=== PATIENT | female | born 1975 | race Caucasian/White ===

== ENCOUNTER 2019-10-26 01:10 | Inpatient (IN) | payer MEDICAID ==
[2019-10-26] VITALS (15 sets, daily range): BP systolic 121–147; BP diastolic 83–95; Ht 170.2 cm; Wt 112.6 kg
[~2019-10-26] VITALS: Ht 170.2 cm; Wt 112.6 kg
--- NOTE | ~2019-10-26 | HEMODYNAMI ---
PATIENT:DERICK QUILES MEDICAL RECORD: [id number] : 77 LOCATION:[facility] D.2310 ADMISSION DATE: 10/26/19 Generatedon:10/26/201914:47 Patient name: DERICK QUILES Patient #: [id number] SSN: : 1975 Date of study: 10/26/2019 Page: Of Hemodynamic Procedure Report Patient Data Patient Demographics Procedure consent was obtained First Name: DERICK Gender: Female Last Name: ETTA : 1975 Patient #: [id number] Age: 44 year(s) Race: Unknown Additional ID: [id number] Contact details Address: [place] [address] State: [place]: [place] Zip code: [address] Admission Admission Data Admission Date: 10/26/2019 Admission Time: 1:38 Room #: D.2310 Height (in.): 67 BSA: 2.23 (m2) Height (cm.): 170.18 BMI: 39.43 (kg/m2) Weight (lbs.): 251.77 Weight (kg.): 114.2 Lab Results Lab Result Date: 10/26/2019 Lab Result Time: 0:00 Biochemistry Name Units Result Min Max BUN mg/dl 22 --(----)-* 7 18 CK-MB ng/ml 26.4 --(----)-* 0 3.6 Creatinine mg/dl 1.4 --(----)*- 0.6 1.3 eGFR ml/min 43 *-(----)-- 90 120 NONAFRICAN Troponin l ng/ml 2.152 --(----)-* 0 0.06 CBC Name Units Result Min Max Hemoglobin g/dl 12.7 -*(----)-- 13.5 17.5 Coagulation Name Units Result Min Max PT sec 1.09 *-(----)-- 11.6 15 Procedure Procedure Types Cath Procedure Diagnostic Procedure [facility] w/Coronaries Sedation Charges Moderate Sedation up to 15 minutes PCI Procedure PTCA PTCA Initial Hemochron ACT Test Procedure Description Procedure Date Procedure Date: 10/26/2019 Procedure Start Time: 14:15 Procedure End Time: 14:39 Procedure Staff Name Function Neil Edwards MD Performing Physician Ramesh Mendoza RT Monitor Jacky Grissom RT Scrub Velma Banuelos RN Nurse Procedure Data Cath Procedure Fluoroscopy Diagnostic fluoroscopy Total fluoroscopy Time: 3.6 time: 3.6 min min Diagnostic fluoroscopy Total fluoroscopy dose: dose: 450.64 mGy 450.64 mGy Contrast Material Contrast Material Type Amount (ml) Isovue 300 119 Entry Location Entry Primary Successful Side Size Upsize Upsize Entry Closure Succes sful Closure Location (Fr) 1 (Fr) 2 (Fr) Remarks Device Remarks Femoral Right 5 Fr 6 Fr Exoseal artery Short Estimated blood loss: 10 ml Diagnostic catheters Device Type Used For End Catheter Placement MULTIPACK JL 4.0 5Fr Procedure catheter MULTIPACK 3DRC 5Fr Procedure catheter MULTIPACK Pigtail 5 Fr Procedure catheter Procedure Complications No complications Procedure Medications Medication Administration Route Dosage 0.9% NaCl I.V. 100 ml/hr Oxygen etCO2 Nasal cannula 2 l/min Lidocaine 2% added to field 20 Heparin Flush Bag added to field 2 bags (1000units/500ml NS) Versed I.V. 2 mg Fentanyl I.V. 50 mcg Heparin Bolus I.V. 5000 units Integrilin (Bolus I.V. 10.2 ml 2mg/ml) Plavix P.O. 600 mg Integrilin (Bolus I.C. 10.2 ml 2mg/ml) Hemodynamics Rest BSA: 2.23 (m2) HGB: 12.7 (g/dl) O2 Consumption: Estimated: 246.97 (ml/min) O2 Co nsumption indexed: Estimated:110.75 (ml/min/m) Heart Rate: 97 (bpm) Pressure Samples Time Site Value (mmHg) Purpose Heart Use Rate(bpm) 14:19 LV 111/18,18 Snapshot 90 14:20 AO 107/69(92) Pullback 110 14:20 LV 109/9,-18 Pullback 110 Gradients Valve Time Site 1 Site 2 Mean SEP/DFP Peak To Heart Use (mmHg) (sec/min) Peak Rate (mmHg) (bpm) Aortic 14:20 LV AO 2 12 2 110 109/9,-18 107/69(92) Calculations Valve P-P Mean Valve Index Valve Source Name Gradient Area Flow (cm2) Aortic 2 2 2 2 Snapshots Pre Cath Intra NCS Post Cath Vital Signs Time Heart Resp SPO2 etCO2 NIBP (mmHg) Rhythm Pain Sedation Rate (ipm) (%) (mmHg) Status Level (bpm) 14:04:36 94 18 97 36 128/94(110) NSR 0 (11) 10(A) , No pain 14:08:45 95 18 98 34 121/77(102) NSR 0 (11) 10(A) , No pain 14:12:51 91 11 96 33 115/78(90) NSR 0 (11) 9(A) , No pain 14:16:57 89 11 96 34.5 112/80(95) NSR 0 (11) 9(A) , No pain 14:21:01 90 11 96 34.5 111/79(91) NSR 0 (11) 9(A) , No pain 14:25:07 91 12 96 33.8 113/73(86) NSR 0 (11) 9(A) , No pain 14:29:16 93 12 95 29.2 93/63(81) NSR 0 (11) 10(A) , No pain 14:33:59 92 13 96 32.2 117/82(99) NSR 0 (11) 10(A) , No pain 14:37:59 95 20 97 21.7 113/99(104) NSR 0 (11) 10(A) , No pain Medications Time Medication Route Dose Verified Delivered Reason Notes Effectiveness by by 14:09:16 Versed I.V. 2 mg Neil Velma for sedation [facility] Blas Banuelos MD RN 14:09:17 0.9% NaCl I.V. 100 Neil Cruza used for ml/hr [facility] Bl[facility] Banuelos procedure RN 14:09:24 Oxygen etCO2 2 Neil Cruza used for Nasal l/min [facility] Bl[facility] Banuelos procedure cannula MD MEDEIROS 14:09:29 Fentanyl I.V. 50 Neil Cruza for sedation mcg [facility] Blas Banuelos MD RN 14:09:30 Lidocaine 2% added 20ml Neil Trejo for local to vial [facility] John anesthetic field MD GARCIA 14:09:34 Heparin Flush added 2 Neil Trejo used for Bag to bags [facility] procedure (1000units/500ml field MD GARCIA NS) 14:20:56 Heparin Bolus I.V. 5000 Neil Carreon for verif ied units [facility] anticoagulation with Dr. MD MEDEIROS Beggs 14:21:12 Integrilin I.V. 10.2 Neil Carreon for 10.2m L (Bolus 2mg/ml) ml [facility] antiplatelet from one RN therapy vial used, no additional integrilin vial needed. 14:21:50 Plavix P.O. 600 Neil Carreon for mg [facility] antiplatelet RN therapy 14:27:14 Integrilin I.C. 10.2 Neil Trejo for (Bolus 2mg/ml) ml [facility] antiplatelet MD GARCIA therapy Procedure Log Time Note 18:40:47 Multiple inflations made at 14 atms.. 18:40:47 Multiple inflations made at 14 atms.. 18:40:47 If diabetic: On Metformin? No 13:34:22 Jacky Jaciel RT(R) sent for patient. Start room use. 13:34:23 Time tracking: Regular hours (M-F 7:00 - 5:00) 13:34:28 Plan of Care:Hemodynamics will remain stable., Cardiac rhythm will remain stable., Comfort level will be maintained., Respiratory function will remain adequate., Patient/ family verbilizes understanding of procedure., Procedure tolerated without complication., Recovers from procedure without complications.. 13:53:50 Patient received from ICU to [facility] 3 Alert and oriented. Tansferred to table in Supine position. 13:53:52 Signed procedure consent form obtained from patient. 13:53:52 Warm blankets applied, and adonay hugger turned on for patient comfort. 13:53:53 Correct patient and procedure confirmed by team. 13:53:53 ECG and BP/O2 sat monitors applied to patient. 14:03:41 Vital chart was started 14:03:42 Baseline sample Acquired. 14:03:47 Rhythm: sinus rhythm 14:03:49 Full Disclosure recording started 14:03:59 H&P Date Dictated: 10/26/2019 Within 30 days and on chart.. 14:04:00 Pre-procedure instructions explained to patient. 14:04:00 Pre-op teaching completed and patient verbalized understanding. 14:04:03 Family unavailable. 14:04:05 Patient NPO since Midnight. 14:04:07 Is the patient allergic to Iodine/contrast media? No. 14:04:11 Is patient on blood thinner?No 14:04:13 ACC The patient was administered the following blood thiners within the last 24 hours: None 14:04:16 Patient diabetic? Yes. 14:04:25 Previous problem with sedation/anesthesia? No ? 14:04:31 Snore? Yes 14:04:34 Sleep apnea? Yes 14:04:36 Deviated septum? No 14:04:37 Opens mouth fully? Yes 14:04:38 Sticks out tongue? Yes 14:04:42 Airway obstruction? Yes COPD 14:04:46 Dentures? No ? 14:04:50 Pre procedure: right dorsailis pedis pulse 1+ Palpable, but thready & weak; easily obliterated 14:05:53 UNABLE TO GO RADIAL DUE TO WEAK RADIAL PULSE.. 14:06:05 Patient pain scale 0/10 ?. 14:06:14 IV patent on arrival in left forearm with 0.9% NaCl at [facility]. 14:06:16 Lab results completed and on chart. 14:06:22 Right groin area was prepped with chlora-prep and draped in sterile fashion 14:06:23 Alarms reviewed by R. N. 14:06:24 Sharps counted by scrub and verified by R.N. 14:08:39 Risk of Mortality: 0.1 14:08:42 Risk of blood transfusion: 0.9 14:08:46 Risk of REGGIE: 4.6 14:08:50 Stress Test: no; N/A ? 14:08:59 Physician arrived 14:08:59 --------ALL STOP TIME OUT------ 14:09:00 Final Timeout: patient, procedure, and site verified with staff and physician. All members of the team are in agreement. 14:09:16 Versed 2 mg I.V. was administered by Velma Banuelos RN; for sedation; Verbal order read back and verified. 14:09:17 0.9% NaCl 100 ml/hr I.V. was administered by Velma Banuelos RN; used for procedure; Verbal order read back and verified. 14:09:24 Oxygen 2 l/min etCO2 Nasal cannula was administered by Velma Banuelos RN; used for procedure; Verbal order read back and verified. 14:09: Right groin site verified by team. 14:09:29 Fentanyl 50 mcg I.V. was administered by Velma Banuelos RN; for sedation; Verbal order read back and verified. 14:09:30 Lidocaine 2% 20ml vial added to field was administered by Neil Edwards MD; for local anesthetic; Verbal order read back and verified. 14::31 Fire Safety Assessment: A--An alcohol-based skin anteseptic being used preoperatively., C--Open oxygen or nitrous oxide is being used., D--An ESU, laser, or fiber-optic light is being used. 14:09:34 Heparin Flush Bag (1000units/500ml NS) 2 bags added to field was administered by Neil Edwards MD; used for procedure; Verbal order read back and verified. 14:09:35 Physical assessment completed. ASA score P 2 - A patient with mild systemic disease as per Neil Edwards MD. 14:09:40 3b) 30-44 Moderately reduced kidney function. 14:09:42 Maximum allowable contrast dose (3.7 X eGFR X 0.75)120 ml. 14:09:46 Sedation plan: IV Moderate Sedation Medication:Versed, Fentanyl 14:10:30 Patient Height : 67 inches 14:10:34 Patient Weight : 251.77 lbs 14:12:15 Lab Result : Creatinine 1.4 mg/dl 14:12:15 Lab Result : BUN 22 mg/dl 14:12:15 Lab Result : Hemoglobin 12.7 g/dl 14:12:15 Lab Result : eGFR NONAFRICAN 43 ml/min 14:12:15 Lab Result : CK-MB 26.4 ng/ml 14:12:15 Lab Result : Troponin l 2.152 ng/ml 14:12:15 Lab Result : PT 1.09 sec 14:15:25 Use device set Femoral Dx 14:15:27 ACIST Manifold (75867) opened to sterile field. 14:15:27 ACIST Hand Control (13125) opened to sterile field. 14:15:28 Tegaderm 4 x 4 (1626W) opened to sterile field. 14:15:29 ACIST Syringe (83939) opened to sterile field. 14:15:30 Bag Decanter (2001S) opened to sterile field. 14:15:30 Medline Cath Pack ([id number]) opened to sterile field. 14:15:32 DIAGNOSTIC Multipack 5Fr catheter set (IQ2261) opened to sterile field. 14:15:34 SHEATH 5FR Ocean Gate (NUA555) opened to sterile field. 14:15:34 EMERALD Guide Wire (429-655) opened to sterile field. 14:15:40 Procedure started. 14:15:45 Local anesthetic to right femoral artery with Lidocaine 2% by Neil Edwards MD.INITIAL ACCESS ONLY 14:16:02 A 5 Fr sheath was inserted into the Right Femoral artery 14:16:11 A MULTIPACK JL 4.0 5Fr catheter was advanced over the wire and used for Procedure. 14:17:12 LCA angiography performed. 14:19:21 Catheter removed. 14:19:27 A MULTIPACK 3DRC 5Fr catheter was advanced over the wire and used for Procedure. 14:19:29 RCA angiography performed. 14:19:31 ACCDominant side:Left 14:19:36 Catheter removed. 14:19:50 A MULTIPACK Pigtail 5 Fr catheter was advanced over the wire and used for Procedure. 14:19:57 LV angiography performed. 14:19:58 LV gram done using ALTMAN 14:20:03 EF : 20 % 14:20:06 LV hemodynamics recorded. 14:20:08 Injector settings: Ml/sec: 10, Volume: 20, 14:20:10 Catheter removed. 14:20:[address] [facility] PCI 14:20:56 Heparin Bolus 5000 units I.V. was administered by Velma Banuelos RN; for anticoagulation; verified with Dr. Silvestre Verbal order read back and verified. 14:21:03 GUIDE 6FR XBLAD 3.5 catheter ([id number]) opened to sterile field. 14:21:05 SHEATH 6FR [place] (IJH951) opened to sterile field. 14:21:11 WHISPER 300cm guide wire ([id number]) opened to sterile field. 14:21:12 Integrilin (Bolus 2mg/ml) 10.2 ml I.V. was administered by Velma Banuelos RN; for antiplatelet therapy; 10.2mL from one vial used, no additional integrilin vial needed. Verbal order read back and verified. 14:21:13 INFLATOR Merit Kishan (CO4574) opened to sterile field. 14:21:26 Sheath upsized to a 6 Fr Short. 14:21:50 Plavix 600 mg P.O. was administered by Velma Banuelos RN; for antiplatelet therapy; Verbal order read back and verified. 14:22:00 6 Fr XBLAD 3.5 guide catheter was inserted over the wire 14:22:41 Pre PCI Site: [place] pLAD has 100% stenosis. 14:22:43 ACC Pre-intervention ROSANGELA Flow is 0. 14:22:50 Whisper wire advanced. 14:23:35 Wire advanced across lesion. 14:26:02 Inflate balloon Inflation number: 1 A Mozec Rx 3.0 x 14 balloon was prepped and advanced across the Prox LAD 100, then inflated to 14 KUNAL for 0:30 (min:sec) . 14:26:27 Multiple inflations made at 14 atms.. 14:27:14 Integrilin (Bolus 2mg/ml) 10.2 ml I.C. was administered by Neil Edwards MD; for antiplatelet therapy; Verbal order read back and verified. 14:31:48 Inflation number: 2 The Mozec Rx 3.0 x 14 balloon was reinflated across the Prox LAD 100, to 12 KUNAL for 0:30 (min:sec) . 14:32:34 Multiple inflations made at 12 atms.. 14:33:23 EXOSEAL 6Fr (EX600) opened to sterile field. 14:33:34 Balloon removed over the wire. 14:33:36 Wire removed. 14:33:38 Guide catheter removed. 14:33:53 Post PCI Site: [place] pLAD has 100% stenosis. 14:33:55 ACC Pre-intervention ROSANGELA Flow is 0. 14:34:13 Sheath removed intact; hemostasis achieved with Exoseal to the Right Femoral artery. 14:34:18 Procedure ended.(Physican Out) 14:35:06 Fluoroscopy time 03.60 minutes. 14:35:11 Fluoroscopy dose: 450.64 mGy 14:35:11 Flurop Dose total: 450.64 14:35:17 Dose Area Product 3648.23 mGy/cm. 14:36:07 Contrast amount:Isovue 300 119ml. 14:36:59 Maximum allowable dose exceeded? No. 14:37:00 Sharps counted by scrub and verified by R.N. 14:37:02 Insertion/operative site no bleeding no hematoma. 14:37:04 Post-op/insertion site Right Femoral artery dressed using a 4 x 4 and Tegaderm. 14:37:05 Post Procedure Pulses reassessed and unchanged 14:37:07 Post-procedure physical assessment completed. ASA score P 2 - A patient with mild systemic disease as per Neil Edwards MD. 14:37:10 Post procedure rhythm: unchanged. 14:37:12 Estimated blood loss: 10 ml 14:37:13 Post procedure instruction explained to patient.Patient verbalizes understanding. 14:37:14 Patient needs reinforcement of post procedure teaching. 14:37:47 Procedure type changed to Cath procedure, Diagnostic procedure, LHC, LHC w/Coronaries, Sedation Charges, Moderate Sedation up to 15 minutes, PCI procedure, PTCA, PTCA Initial, Hemochron ACT Test 14:37:48 Procedure and supply charges have been captured, reviewed, submitted and are correct. 14:37:51 Procedure Complication : No complications 14:37:55 Vital chart was stopped 14:37:57 [facility] Findings: MVD- PCI performed (see procedure note) 14:37:58 Operative report dictated upon procedure completion. 14:37:58 See physician's report for complete and final results. 14:38:01 Report given to ICU. 14:38:04 Patient transfered to ICU with Stretcher. 14:39:55 Procedure ended. 14:39:55 Full Disclosure recording stopped 14:40:00 ACT drawn and resulted at >400 seconds. (normal therapeutic range 180-240 seconds). 14:45:46 End room use (Document Last) 14:46:00 End room use (Document Last) Intervention Summary Intervention Notes Time ActionType Lesion and Equipment Action# Pressure Duration Attributes Used 14:26:02 Inflate Prox LAD Mozec Rx 1 14 00:30 balloon 3.0 x 14 balloon 14:31:48 Reinflate Prox LAD Mozec Rx 2 12 00:30 balloon 3.0 x 14 balloon Device Usage Item Name Manufacture Quantity Catalog Hospital Part Current Minima l Lot# / Number Charge Number Stock Stock Serial# Code [facility] 1 66677 370668 059824 854641 5 Manifold Medical (13533) Systems Inc ACIST Hand Acist 1 57371 723686 155010 236369 5 Control Medical (86236) Systems Inc Tegaderm 4 3M 1 1626W 996385 296189 027267 5 x 4 (1626W) ACIST Acist 1 36908 833639 049050 131080 20 Syringe Medical (93971) Systems Inc Bag Microtek 1 2001S 431561 75867 617430 5 Decanter Medical Inc. (2001S) Medline Medline 1 [id number] 423038 70704 028331 5 Cath Pack ([id number]) DIAGNOSTIC Cardinal 1 DS8753 001811 99913 415359 30 Multipack Unbound 5Fr catheter set (HS8981) SHEATH 5FR Terumo 1 RRF658 025090 127939 884354 5 Ocean Gate (BML407) EMERALD Cardinal 1 502-455 081833 831093 889485 5 Guide Wire Health (502455) MULTIPACK Cardinal 1 173297 5 JL 4.0 5Fr Health catheter MULTIPACK Cardinal 1 073267 5 3DRC 5Fr Health catheter MULTIPACK Cardinal 1 130869 5 Pigtail 5 Health Fr catheter GUIDE 6FR Cardinal 1 [id number] 663741 881038 849399 10 XBLAD 3.5 Health catheter (70902677) SHEATH 6FR Terumo 1 DUW913 618593 320358 279572 40 Ocean Gate (XQP030) WHISPER Dhaliwal 1 [id number] 962776 227988 050586 5 300cm guide Vascular wire (4839176UM) INFLATOR Merit 1 JS2392 455266 052072 615686 15 [facility] [place] [facility] BasixCompak (JU8935) Mozec Rx Cardinal 1 [id number] 815566 [id number] 129916 5 UMOD90 3.0 x 14 Health balloon EXOSEAL 6Fr Cardinal 1 EX600 778140 596031 481849 10 (EX600) Health Signature Audit [place] Stage Time Signature Unsigned Intra-Procedure 10/26/2019 Ramesh Mendoza 2:46:00 PM RT(R) Intra-Procedure 10/26/2019 Velma Banuelos 2:47:19 PM RN Intra-Procedure 10/26/2019 Neil Teixeira 2:47:38 PM Blas GARCIA [address] [place] [address]
[2019-10-26] MEDS ORDERED: NORVASC10 MG (01:20)
[2019-10-26] MEDS ORDERED: GLIPIZIDE10 MG PO (01:20)
[2019-10-26] MEDS ORDERED: ALBUTEROL SULF8.5 GM PO (01:20)
[2019-10-26] MEDS ORDERED: COUMADIN4 MG PO (01:21)
[2019-10-26] MEDS ORDERED: TOPROL XL200 MG (01:21)
[2019-10-26] MEDS ORDERED: KEPPRA1000 MG PO (01:21)
[2019-10-26] MEDS ORDERED: PLAVIX75 MG (01:21)
[2019-10-26] MEDS ORDERED: HYZAAR 50-12.51 TAB (01:21)
[2019-10-26 02:46] LABS: CKMB 3.1 U/L (0.0-3.6); CREATINE KINASE 56 UL (21-215)
[2019-10-26 02:47] LABS: TROPONIN-I 0.294 ng/mL (0.000-0.060)
--- NOTE | 2019-10-26 03:20 | NUR ---
PT ARRIVED ON UNIT VIA STRETCHER, HOOKED TO MONITORS, ALERT AND ORIENTED, ALL PPP, VSS, CALL LIGHT IN REACH
[2019-10-26 05:03] LABS: BASOPHILS 0.1 % (0-2); EOSINOPHILS 0.2 % (0-7); HEMATOCRIT 41.9 % (36.0-48.0); HEMOGLOBIN 12.7 g/dL (12-16); IMMATURE GRANULOCYTES 0.7 % (0-5); LYMPHOCYTES 5.3 % (15-50); MCH 25.1 pg (26.0-34.0); MCHC 30.3 g/dL (31.0-37.0); MEAN PLATELET VOLUME 9.9 fL (7.4-10.4); MONOCYTES 3.3 % (2-11); NEUTROPHILS 90.4 % (40-80); PLATELET COUNT 276 10x3/uL (130-400); RBC 5.05 10x6/uL (4.00-5.40); RDW 15.8 % (11.5-14.5); WBC 10.9 10x3/uL (4.8-10.8)
--- NOTE | 2019-10-26 05:10 | NUR ---
PT RESTING AT THIS TIME, NO NEEDS NOTED,
[2019-10-26 05:19] LABS: APTT 25.3 SECONDS (22.8-39.4); INR 1.09 (0.85-1.17); PROTIME 14.1 SECONDS (11.6-15.0)
[2019-10-26 05:31] LABS: ANION GAP 12.2 mmol/L (8-16); CALCIUM 8.4 mg/dL (8.5-10.1); CARBON DIOXIDE 29.6 mmol/L (21.0-32.0); CREATININE - SERUM 1.4 mg/dL (0.6-1.3); MAGNESIUM - SERUM 1.6 mg/dL (1.8-2.4); PHOSPHOROUS 5.3 mg/dL (2.5-4.9); POTASSIUM - SERUM 4.8 mmol/L (3.5-5.1)
--- NOTE | 2019-10-26 05:45 | NUR ---
CONSULT CALLED TO DR. AGEE, NO NEW ORDERS RECEIVED
--- NOTE | 2019-10-26 07:15 | NUR ---
REPORT RECEIVED. ASSESSMENT COMPLETE PER FLOW SHEET. VSS ASSISTED TO BEDSIDE COMMODE. 150 CC VOID NOTED. ASSISTED BACK TO BED. DENIES NEEDS WILL CONTINUE TO MONITOR
[2019-10-26 08:31] LABS: CKMB 26.4 U/L (0.0-3.6); CREATINE KINASE 183 UL (21-215)
[2019-10-26 08:34] LABS: TROPONIN-I 2.152 ng/mL (0.000-0.060)
--- NOTE | 2019-10-26 08:40 | NUR ---
DR SUBRAMANIAN AT BEDSIDE GIVEN UDPATE. NEW ORDERS RECEIEVD.
[2019-10-26 09:24] LABS: CHOL - HDL RATIO 4.6 ratio (2.3-4.1); LDL-HDL RATIO 2.9 ratio (1.5-3.5)
--- NOTE | 2019-10-26 10:29 | NUR ---
PT SLEEPING COMFORTABLY WILL CONTINUE TO MONITOR
--- NOTE | 2019-10-26 11:15 | NUR ---
REASSESSMENT COMPLTE PER FLOW SHEET. VSS. NO NEW CHANGES WILL CONTINUE TO MONITOR
--- NOTE | 2019-10-26 13:40 | NUR ---
CRANIOLOGIST CALLED PT PREOPED AT THIS TIME
--- NOTE | 2019-10-26 14:00 | NUR ---
CORRECTIONAL FACILITY PSYCHIATRIST AT BEDSIDE PT LEFT VIA BED
[2019-10-26 14:28] LABS: CKMB 50.8 U/L (0.0-3.6); CREATINE KINASE 358 UL (21-215)
[2019-10-26 14:29] LABS: TROPONIN-I 5.956 ng/mL (0.000-0.060)
--- NOTE | 2019-10-26 15:50 | NUR ---
PT RECEIVED FROM [employer]PER[employer] GUIDANCE VSS R GROIN INCISION SITE DRSG CDI GOLF BALL SIZE HEMATOMA PRESENT. R PEDAL PULSE PALP +2 FEM STOP PATENT AT 87. WILL CONTINUE TO MONITOR
--- NOTE | 2019-10-26 17:15 | NUR ---
FAMILY CALLED GIVEN UDPATE. PT SLEEPING COMFORTABLY WILL CONTINUE TO MONITOR
--- NOTE | 2019-10-26 19:15 | NUR ---
REPORT RECEIVED. PT RESTING IN BED, AAOX4. FEM STOP IN PLACE, HEMATOMA MARKED ON RT GROIN. RT AC PIV INFUSING, SEE IV FLOWSHEET. ASSESSMENT COMPLETED, SEE FLOWSHEET. NO ACUTE DISTRESS NOTED AT THIS TIME, WILL CONTINUE TO MONITOR.
[2019-10-26 20:10] LABS: CREATINE KINASE 1055 UL (21-215)
[2019-10-26 20:12] LABS: TROPONIN-I 41.397 ng/mL (0.000-0.060)
--- NOTE | 2019-10-26 21:00 | NUR ---
PT RESTING IN BED, NO ACUTE DISTRESS NOTED. WILL CONTINUE TO MONITOR.
--- NOTE | 2019-10-26 23:00 | NUR ---
PT RESTING IN BED, NO ACUTE DISTRESS NOTED. WILL CONTINUE TO MONITOR.
[2019-10-27] VITALS (25 sets, daily range): BP systolic 119–152; BP diastolic 76–102
--- NOTE | 2019-10-27 01:00 | NUR ---
PT RESTING IN BED, NO ACUTE DISTRESS NOTED.
--- NOTE | 2019-10-27 03:00 | NUR ---
PT RESTING IN BED COMFORTABLY. NO ACUTE DISTRESS NOTED. WILL CONTINUE TO MONITOR.
[2019-10-27 03:13] LABS: BASOPHILS 0.2 % (0-2); EOSINOPHILS 0.8 % (0-7); HEMATOCRIT 38.3 % (36.0-48.0); HEMOGLOBIN 11.5 g/dL (12-16); IMMATURE GRANULOCYTES 0.4 % (0-5); LYMPHOCYTES 8.4 % (15-50); MCH 24.8 pg (26.0-34.0); MCV 82.7 fL (80.0-100.0); MEAN PLATELET VOLUME 9.9 fL (7.4-10.4); MONOCYTES 7.7 % (2-11); NEUTROPHILS 82.5 % (40-80); PLATELET COUNT 268 10x3/uL (130-400); RBC 4.63 10x6/uL (4.00-5.40); RDW 16.2 % (11.5-14.5); WBC 11.1 10x3/uL (4.8-10.8)
[2019-10-27 03:42] LABS: ANION GAP 13.1 mmol/L (8-16); CALCIUM 8.1 mg/dL (8.5-10.1); CARBON DIOXIDE 26.3 mmol/L (21.0-32.0); CREATININE - SERUM 1.2 mg/dL (0.6-1.3); MAGNESIUM - SERUM 1.7 mg/dL (1.8-2.4); POTASSIUM - SERUM 4.4 mmol/L (3.5-5.1)
[2019-10-27 03:43] LABS: PHOSPHOROUS 3.9 mg/dL (2.5-4.9)
--- NOTE | 2019-10-27 05:10 | NUR ---
FEM STOP REMOVED, SITE SLIGHTLY FIRM TO PALPATION.
--- NOTE | 2019-10-27 07:00 | NUR ---
PT REPORT RRECEIVED FROM FRENCH BINDER NURSE. NO VISIBLE SIGNS OF DISTRESS NOTED. SHIFT ASSESSMENT COMPLETED. WILL CONTINUE TO MONITOR
--- NOTE | 2019-10-27 07:00 | NUR ---
PT REPORT RECEIVED FROM BUILDINGS PAINTER NURSE. NO VISIBLE SIGNS OF DISTRESS NOTED. SHIFT ASSESSMENT COMPLETED AT THIS TIME. PT ON LEVOPHED AT 2. WILL CONTINUE TO MONITOR
--- NOTE | 2019-10-27 08:49 | CN ---
PATIENT NAME:DERICK QUILES MEDICAL RECORD: [id number] : 77 LOCATION:[facility].2310 ADMIT DATE: 10/26/19 ACCOUNT: [id number] CONSULTING PHYSICIAN: SON SUBRAMANIAN MD REFERRING PHYSICIAN: SON PACE MD DATE OF CONSULTATION: 10/26/2019 HISTORY OF PRESENT ILLNESS: A 44-year-old female with a known coronary artery disease, status post stenting after myocardial infarction. She is status post CVA as well as diabetes mellitus, onset chest tightness, pressure, presented to [facility], found to have NSTEMI and is brought here for further evaluation. PAST MEDICAL HISTORY: Includes: 1. History of hypertension. 2. Diabetes mellitus. 3. Dyslipidemia. 4. Cerebrovascular disease status post CVA. ALLERGIES: TRICOR, NAPROSYN. MEDICATIONS: Include albuterol inhaler 2 puffs b.i.d., Plavix 75 every day, warfarin per scale, Norvasc 10 mg p.o. daily, Hyzaar 50/12.5 every day, metoprolol 200 every day, Glucotrol 10 p.o. b.i.d. SOCIAL HISTORY: Smokes less than a pack a day. No set of exercise program. No illicit drug use, though take care of ADLs. REVIEW OF SYSTEMS: The patient reports easy bruising but reports no swollen glands. The patient reports no fever, no night sweats, no significant weight gain, no significant weight loss. No significant exercise tolerance. The patient reports no dry eyes, no irritation, no vision change. Patient reports no difficulty hearing and no ear pain. Patient reports no frequent nose bleeds or nose and sinus problems. Patient reports on arm pain on exertion. No shortness of breath while lying down. No history of heart murmur. Patient reports no cough, no wheezing or coughing up blood. Patient reports no abdominal pain, no vomiting. Normal appetite. No diarrhea and not vomiting blood. No nausea and no constipation. Patient reports no incontinence. No difficulty urinating. No hematuria. No increased frequency. Patient reports no muscle aches. No weakness, no arthralgias, no back pain. No swelling of the extremities. Patient reports no abnormal mole, no jaundice, no rashes. Reports no loss of consciousness. No weakness and no numbness. No seizures, dizziness, or headaches. The patient reports no depression, no sleep disturbance, feeling safe in a relationship and no alcohol abuse. Patient reports on fatigue. Reports no runny nose or sinus pressure. No itching, no hives, and no frequent sneezing. PHYSICAL EXAMINATION: GENERAL: Pleasant female, in no acute distress, appears stated age. VITAL SIGNS: Blood pressure 147/88, pulse 103 and regular. HEENT: Normocephalic, atraumatic. NECK: No bruits are noted. HEART: Regular. Questionable S3 gallop. LUNGS: Good air excursion. ABDOMEN: Soft, nontender. CONSULT REPORT [id number] DERICK QUILES EXTREMITIES: Pulses 1+ with no edema. DIAGNOSTIC DATA: EKG shows possible old anterior myocardial infarction. IMPRESSION: NSTEMI, multiple risk factors. PLAN: For angiography, intervention based on above. TRANSINT:[id number] Voice Confirmation ID: [id number] DOCUMENT ID: [id number] SON SUBRAMANIAN MD at 0849 CC: [id number] DICTATION DATE: 10/26/19 0849 BAND MANAGER: 10/26/19 1254 ADM IN [address] [place] [address]
--- NOTE | 2019-10-27 08:49 | OP ---
PATIENT NAME: DERICK QUILES MEDICAL RECORD: [id number] :77 LOCATION:D.[facility] D.2310 ADMISSION DATE:10/26/19 SURGEON: SON SUBRAMANIAN MD DATE OF OPERATION: 10/26/2019 PROCEDURE: Left heart catheterization. PTCA stent of the LAD, right femoral artery approach. CATHETERS: A 5-Martiniquais sheath, 5/4 left and right Rios, 5/4 pig. The procedure was well tolerated. The patient was returned to kumar. Sheath removed. ExoSeal device was placed. FINDINGS: Left ventriculography in 30-degree ALTMAN view shows basically akinesis, anterior wall down to the anterior apex and true apex. LV function, estimated at 20% to 25%. CORONARY ANATOMY: LEFT MAIN: Left main is free of disease. LAD: Fills until the first stent is totally occluded. CIRCUMFLEX: Free of disease. RIGHT CORONARY ARTERY: Free of disease. IMPRESSION: Total occlusion of LAD. PLAN: Intervention momentarily. DESCRIPTION: A 5-Martiniquais sheath was exchanged for a 6-Martiniquais sheath. XB LAD guiding catheter out excellent guide catheter provided excellent guide catheter support, followed by 300 cm Whisper wire was placed easily down the stent down this portion of the apex of the LAD. We used a 3-0 balloon up and down the area of previous stenting in the levelock vessel up to 12 atmospheres, also was given IC Integrilin; however, we established no more than ROSANGELA 1 flow from ROSANGELA 0. IMPRESSION: Suspect significant clot burden at this point fortunately has been noncompliant and Plavix. I am not sure which of the anterior wall is viable at this point with Integrilin drip for 18 hours. QRS duration at this point is too narrow for a 3-lead. Depending on symptomology, etc. we will need to consider device therapy at some point. TRANSINT:[id number] Voice Confirmation ID: [id number] DOCUMENT ID: [id number] SON SUBRAMANIAN MD at 0849 CC: [id number] DICTATION DATE: 10/26/19 1446 LOG RAFT WORKER: 10/26/19 2253 ADM IN [facility] [address] [place] [address]
--- NOTE | 2019-10-27 09:00 | NUR ---
PT RESTING IN BED. DR JAUREGUI. ORDERS RECEIVED TO STOP TEGRELIN AND TO ORDER A MEAL TRAY FOR PT. WILL CONTINUE TO MONITOR
--- NOTE | 2019-10-27 09:00 | NUR ---
PT RESTING IN BED COMFORTABLY. NO ACUTE SIGNS OF DISTRESS NOTED. LEVOPHED TURNED OFF. PT TOLERATING WELL. WILL CONTINUE TO MONITOR
--- NOTE | 2019-10-27 09:19 | NUR ---
Nutrition follow-up: Pt sleeping at this time; did not disturb Diet advanced to consistent CHO Labs reviewed Pt s/p heart cath Wt: 251# RDN following.
--- NOTE | 2019-10-27 11:00 | NUR ---
PT RESTING IN BED COMFORTABLY. NO VISIBLE SIGNS OF DISTRESS NOTED. VSS. WILL CONTINUE TO MONITOR. REASSESSMENT COMPLETED.
--- NOTE | 2019-10-27 13:00 | NUR ---
PT UP TO BEDSIDE COMMODE. FAMILY IN ROOM. PT TOLERATED WELL. WILL CONTINUE TO MONITOR
--- NOTE | 2019-10-27 13:00 | NUR ---
PT RESTING IN BED COMFORTABLY. AROUSES EASILY. NO ACUTE SIGNS OF DISTRESS NOTED. WILL CONTINUE TO MONITOR
--- NOTE | 2019-10-27 15:00 | NUR ---
PT UP TO BEDSIDE COMMODE. NO VISIBLE SIGNS OF DISTRESS NOTED. REASSESSMENT COMPLETED. WILL CONTINUE TO MONITOR
--- NOTE | 2019-10-27 17:12 | NUR ---
PT RESTING ON THE EDGE OF THE BED. FINISHED MEAL TRAY. NO ACUTE SIGNS OF DISTRESS NOTED. WILL CONTINUE TO MONITOR
--- NOTE | 2019-10-27 19:00 | NUR ---
REPORT RECEIVED. INITIAL ASSESMENT COMPLETE. PT ALERT AND ORIENTED DENIES PAIN OR SOB AT THIS TIME. S1S2 CM READING SR90'S WITHOUT ECTOPY. RIGHT GROIN SITE CLEAN DRY BRUISING NOTED SOFT TISSUE AROUND SITE. PULSE PALPABLE VSS AT THIS TIME CALL LIGHT IN REACH WILL MONITOR
--- NOTE | 2019-10-27 23:00 | NUR ---
REASSESSMENT COMPLETE NO CHANGES PT GETS UP TO BSC WITHOUT ASSISTANCE CPOC
[2019-10-28] VITALS (26 sets, daily range): BP systolic 110–133; BP diastolic 77–97
--- NOTE | 2019-10-28 01:00 | NUR ---
PT UP TO BSC WITHOUT ASSISTANCE DENIES PAIN
--- NOTE | 2019-10-28 04:00 | NUR ---
ANSWERED PTS CALL LIGHT SHE IS REQUESTING SNACK LUKE CRACKERS AND DIET DRINK GIVEN
--- NOTE | 2019-10-28 04:10 | NUR ---
LAB HERE FOR AM BLOOD DRAW
[2019-10-28 04:23] LABS: BASOPHILS 0.2 % (0-2); EOSINOPHILS 2.4 % (0-7); HEMATOCRIT 35.2 % (36.0-48.0); HEMOGLOBIN 10.7 g/dL (12-16); IMMATURE GRANULOCYTES 0.5 % (0-5); LYMPHOCYTES 11.6 % (15-50); MCH 24.7 pg (26.0-34.0); MCHC 30.4 g/dL (31.0-37.0); MCV 81.3 fL (80.0-100.0); MEAN PLATELET VOLUME 9.9 fL (7.4-10.4); MONOCYTES 7.7 % (2-11); NEUTROPHILS 77.6 % (40-80); PLATELET COUNT 254 10x3/uL (130-400); RBC 4.33 10x6/uL (4.00-5.40); RDW 16.1 % (11.5-14.5); WBC 8.6 10x3/uL (4.8-10.8)
[2019-10-28 04:38] LABS: ANION GAP 9.8 mmol/L (8-16); CALCIUM 8.3 mg/dL (8.5-10.1); CARBON DIOXIDE 29.4 mmol/L (21.0-32.0); CREATININE - SERUM 1.2 mg/dL (0.6-1.3); MAGNESIUM - SERUM 1.6 mg/dL (1.8-2.4); PHOSPHOROUS 3.7 mg/dL (2.5-4.9); POTASSIUM - SERUM 4.2 mmol/L (3.5-5.1)
--- NOTE | 2019-10-28 07:00 | NUR ---
PT REPORT RECEIVED FROM ELECTION WATCHER NURSE. NO ACUTE SIGNS OF DISTRESS NOTED. SHIFT ASSESSMENT COMPLETED.
--- NOTE | 2019-10-28 09:00 | NUR ---
PT RESTING IN BED. AROUSES EASILY. NO ACUTE SIGNS OF DISTRESS NOTED. WILL CONTINUE TO MONITOR
--- NOTE | 2019-10-28 11:00 | NUR ---
PT UP AT BEDSIDE. NO ACUTE SIGNS OF DISTRESS NOTED. REASSESSMENT COMPLETED. WILL CONTINUE TO MONITOR
--- NOTE | 2019-10-28 13:00 | NUR ---
PT PLAYING ON PHONE IN BED. RESTING COMFORTABLY. WILL CONTINUE TO MONITOR
--- NOTE | 2019-10-28 15:17 | NUR ---
PT RESTING IN BED COMFORTABLY. AROUSES EASILY. REASSESSMENT COMPLETED. WILL CONTINUE TO MONITOR
--- NOTE | 2019-10-28 17:00 | NUR ---
PT RESTING IN BED EATING MEAL TRAY. NO ACUTE SIGNS OF DISTRESS NOTED. PT HAS NO COMPLAINTS AT THIS TIME. WILL CONTINUE TO MONITOR
--- NOTE | 2019-10-28 19:10 | NUR ---
VISITED WITH PT AND RECIVED SHIFT REPORT. PT IS A&OX4 IS RESTING IN BED WATCHIING TV. I PERFOMRED MY ASSESEMENT. I SALINE FLUSED PT IV IN THE RIGHT AC THAT WAS SL. THERE WAS SOME LEAKING AROUND THE HUB. I DC THE DRESSING, CLEANED UP THE AREA AND FLUSHED THE IV WITH NO S/S OF INFILTRATION. REDRESSED THE IV SITE AND DATED AND TIMED. PT TOLERATED WELL WITH SAYING "IT DOESNT HURT". PT ASKED AFTER THIS "CAN I HAVE MY SNACK, DINNER WAS NOT MUCH AND I AM HUNGRY". I VOCALIZED YES LET ME SEE WHAT YOU HAVE. I BROUGHT THE PT HER GRAM CRACKERS THAT WERE PROVIDED FROM DIETARY FOR HER AND SUGARFREE APPLESACUE AND A SPOON. I ASKED IF I COULD GET HER MORE WATER. SHE VOCALIZED "NO I AM GOOD". PT DOES NOT VOICE ANY DISCOMFORT AT THIS TIME. VITAL SIGHNS ARE STABLE. BED IS LOW,SIDE RAISLX2,CALL LIGHT WITHIN REACH. WILL CONITNUE TO MONITOR
--- NOTE | 2019-10-28 21:15 | NUR ---
PT IS RESTING IN BED WATCHING TV. VOICES NO C/O AT THIS TIME. BED IS LOW,SIDE RAILSX2,CALL LIGHT WITHIN REACH. WILL CONITNUE TO YAKELIN
--- NOTE | 2019-10-28 23:05 | NUR ---
PT IS RESTING IN BED WITH EYES CLOSED. I CHECKED ON IV AT THIS TIME. THERE IS NO S/S OF INFILTRATION. PT VOICES NO DISCOMFORT. PT IS LAYING ON HER LEFT SIDE. VITAL SIGNS ARE STABLE. BED IS LOW, SIDE RAILSX2,CALL LIGHT WITHIN REACH. WILL CONTINUE TO MONITOR
[2019-10-29] VITALS (7 sets, daily range): BP systolic 104–143; BP diastolic 69–101
--- NOTE | 2019-10-29 01:25 | NUR ---
PT IS UP USING THE BEDSIDE CAMMODE. VOICES NO DISCOMFORTS AT THIS TIME. SHE IS ABLE TO AMB HERSLEF THERE AND BACK TO THE BED SAFELY. PT VITALS ARE STABLE. BED IS LOW,SIDE RAISX2, CALL LIGHT WITHIN REACH. WILL CONTINUE TO MONITOR
[2019-10-29 03:51] LABS: BASOPHILS 0.1 % (0-2); EOSINOPHILS 2.3 % (0-7); HEMATOCRIT 34.7 % (36.0-48.0); HEMOGLOBIN 10.4 g/dL (12-16); IMMATURE GRANULOCYTES 0.7 % (0-5); LYMPHOCYTES 12.1 % (15-50); MCH 24.8 pg (26.0-34.0); MCV 82.6 fL (80.0-100.0); MONOCYTES 8.4 % (2-11); NEUTROPHILS 76.4 % (40-80); PLATELET COUNT 262 10x3/uL (130-400); RDW 16.1 % (11.5-14.5); WBC 7.5 10x3/uL (4.8-10.8)
[2019-10-29 04:03] LABS: ANION GAP 9.8 mmol/L (8-16); CARBON DIOXIDE 29.7 mmol/L (21.0-32.0); CREATININE - SERUM 1.2 mg/dL (0.6-1.3); MAGNESIUM - SERUM 1.8 mg/dL (1.8-2.4); PHOSPHOROUS 4.5 mg/dL (2.5-4.9); POTASSIUM - SERUM 4.5 mmol/L (3.5-5.1)
--- NOTE | 2019-10-29 04:14 | NUR ---
WHEN CHECKING ON PT SHE VOCALIZED "MAY I HAVE A SNACK". I VOICED I WOULD LOOK TO SEE IF SHE HAS ONE. I PROVIDED PT WITH SNACK FROM THE KITCHEN THAT WAS BROUGHT UP FOR HER PER DIET ORDER. ALSO PROVIDED HER WITH A FRESH ICE WATER. I EMPTED HER BEDSIDE COMMODE AT THIS TIME. PT HAD A SMALL DARK BROWN BM. ALSO CHECKED PULSE CHECKS AT THIS TIME AND PALPATED STRONG PULSE IN RIGHT FOOT. NO OTHER NEEDS AT THIS TIME. VITALS ARE STABLE. BED IS LOW, SIDE RAILSX2, CALL LIGHT WIHTIN REACH. WILL CONTINUE TO MONITOR
--- NOTE | 2019-10-29 06:48 | NUR ---
PT IS SITING UP IN BED. VOICED "I HAD A BOWEL MOVEMENT". I GOT RID OF THIS AT THIS TIME. CLEANED BEDSIDE COMMODE. NO DISCOMFORT VOICED. VITAL SIGNS ARE STABLE. BED IS LOW,SIDE RAILSX2, CALL LIGHT WITHIN REACH. WILL CONTINUE TO MONTIOR
--- NOTE | 2019-10-29 08:11 | NUR ---
UP IN BED EATING BREAKFAST AT THIS TIME. VSS. NO ACUTE DISTERSS NOTED. PT DENIES ANY CHEST PAIN. WILL CONTINUE PLAN OF CARE.
--- NOTE | 2019-10-29 10:42 | NUR ---
CHG BATH OFFERED AT THIS TIME, PT REFUSED.
--- NOTE | 2019-10-29 11:50 | NUR ---
REPORT CALLED TO RECIEVING NURSE FOR PT TO TRANSFER TO ROOM 2114. WILL TRANSFER PT SHORTLY.
--- NOTE | 2019-10-29 12:05 | NUR ---
PT TRANSFERRED TO ROOM 2115 AT THIS TIME VIA WHEELCHAIR WITH ALL PERSONAL ITEMS. VSS. NO ACUTE DISTRESS NOTED. NO FURTHER ACTIONS.
--- NOTE | 2019-10-29 15:36 | MORECARE ---
CASE MANAGEMENT DISCHARGE SUMMARY PATIENT: DERICK QUILES UNIT: [id number] ADM DATE: 10/26/19 AGE: 44 : [birth year] SEX: F ROOM/BED: D.6135 AUTHOR: MINDY,DOC PHYSICIAN: REFERRING PHYSICIAN: SON PACE MD DATE OF SERVICE: 10/29/19 Discharge Plan Patient Name: DERICK QUILES Facility: [facility]:[place] : 1975 Planned Disposition: Home Anticipated Discharge Date: Discharge Date: Expected LOS: Initial Reviewer: [email or web address] Initial Review Date: 10/27/2019 Generated: 10/29/19 4:36 pm Comments DCP- Discharge Planning Updated by [email or web address]: Carolyn Mccullough on 10/29/19 2:[address] LATE ENTRY 10/27/2019 Patient Name: DERICK QUILES Admission Status: ER Accout number: [id number] Admission Date: 10-26-2019 : 1975 Admission Diagnosis: Attending: MELISSA Current LOS: 1 Anticipated DC Date: Planned Disposition: Home Primary Insurance: MEDICAID [place] PENDING Discharge Planning Comments: CM met with patient to complete initial dc planning assessment. CM educated patient on the CM role and verbal consent given by patient to complete assessment. Patient states she is staying with her myotnm-[id number]-ehw where she is independent with her care. At discharge patient plans to return home and feels this is a safe discharge. CM discussed availability of home health, rehab services, and medical equipment. She will have family drive her home at discharge. Patient has a shower chair, bedside commode, and rollator. Patient denied known discharge needs at this time. Patient may need assistance with medications upon discharge d/t Medicaid pending. CM will continue to follow and will assist as needed with dc plans/needs. Barrel Tester: Carolyn Mccullough DCPIA - Discharge Planning Initial Assessment Updated by [email or web address]: Carolyn Mccullough on 10/29/19 3:30 pm * Is the patient Alert and Oriented? Yes * How many steps to enter\exit or inside your home? * PCP NO PCP * [facility] * Preadmission Environment Home with Family * ADLs Independent * Other Equipment BSC, SC, ROLLATOR * List name and contact numbers for known caregivers / representatives who currently or will assist patient after discharge: NHI QUILES - SPOUSE- [phone] * Verbal permission to speak to the caregivers and representatives has been obtained from the patient. Yes * Community resources currently utilized None * Additional services required to return to the preadmission environment? No * Can the patient safely return to the preadmission environment? Yes * Has this patient been hospitalized within the prior 30 days at any hospital? Yes Patient Name: DERICK QUILES Page [id number] at 1536 All edits/amendments must be made on the electronic document DICTATION DATE: 10/29/191535 COMPUTER SYSTEMS TECHNOLOGY INSTRUCTOR: DANG 10/29/191535 RPT#: [id number] DC DATE: STATUS: ADM IN [facility] [address] [place] [address] END OF REPORT
--- NOTE | 2019-10-29 15:44 | MORECARE ---
CASE MANAGEMENT DISCHARGE SUMMARY PATIENT: DERICK QUILES UNIT: [id number] ADM DATE: 10/26/19 AGE: 44 : [birth year] SEX: F ROOM/BED: D.7058 AUTHOR: MINDY,DOC PHYSICIAN: REFERRING PHYSICIAN: SON PACE MD DATE OF SERVICE: 10/29/19 Discharge Plan Patient Name: DERICK QUILES Facility: [facility]:[place] : 1975 Planned Disposition: Home Anticipated Discharge Date: Discharge Date: Expected LOS: Initial Reviewer: [email or web address] Initial Review Date: 10/27/2019 Generated: 10/29/19 4:43 pm Comments DCP- Discharge Planning Updated by [email or web address]: Carolyn Mccullough on 10/29/19 2:[address] LATE ENTRY 10/27/2019 Patient Name: DERICK QUILES Admission Status: ER Accout number: [id number] Admission Date: 10-26-2019 : 1975 Admission Diagnosis: Attending: MELISSA Current LOS: 1 Anticipated DC Date: Planned Disposition: Home Primary Insurance: MEDICAID [place] PENDING Discharge Planning Comments: CM met with patient to complete initial dc planning assessment. CM educated patient on the CM role and verbal consent given by patient to complete assessment. Patient states she is staying with her jvvumz-s-zxm where she is independent with her care. At discharge patient plans to return home and feels this is a safe discharge. CM discussed availability of home health, rehab services, and medical equipment. She will have family drive her home at discharge. Patient has a shower chair, bedside commode, and rollator. Patient denied known discharge needs at this time. Patient may need assistance with medications upon discharge d/t Medicaid pending. CM will continue to follow and will assist as needed with dc plans/needs. Well Driller: Carolyn Mccullough DCPIA - Discharge Planning Initial Assessment Updated by [email or web address]: Carolyn Mccullough on 10/29/19 3:30 pm * Is the patient Alert and Oriented? Yes * How many steps to enter\exit or inside your home? * PCP NO PCP * [facility] * Preadmission Environment Home with Family * ADLs Independent * Other Equipment BSC, SC, ROLLATOR * List name and contact numbers for known caregivers / representatives who currently or will assist patient after discharge: NHI QUILES - SPOUSE- [phone] * Verbal permission to speak to the caregivers and representatives has been obtained from the patient. Yes * Community resources currently utilized None * Additional services required to return to the preadmission environment? No * Can the patient safely return to the preadmission environment? Yes * Has this patient been hospitalized within the prior 30 days at any hospital? Yes Patient Name: DERICK QUILES Page [phone] at 1544 All edits/amendments must be made on the electronic document DICTATION DATE: 10/29/191542 DELI WORKER: DANG 10/29/191542 RPT#: [id number] DC DATE: STATUS: ADM IN [facility] [address] [place] [address] END OF REPORT
--- NOTE | 2019-10-29 19:58 | NUR ---
REPORT RECIEVED AND INITIAL ROUNDS COMPLETED. PT RESTING IN BED. SR/1OO PER TELEMETRY. SEE SHIFT ASSESSMENT. CPOC.
--- NOTE | 2019-10-29 22:44 | NUR ---
FSBS 219, SLIDING SCALE INSULIN GIVEN. ASSISTED PT TO REMOVED LEFT LOWER LEG ORTHOTIC. DECLINED BEDTIME SNACK. CALL LIGHT IN REACH. CPOC.
[2019-10-30 00:20] VITALS: BP 122/85
--- NOTE | 2019-10-30 05:18 | NUR ---
NO CHANGE FROM INITIAL SHIFT ASSESSMENT. CPOC. CALL LIGHT IN REACH.
[2019-10-30 05:30] LABS: BASOPHILS 0.1 % (0-2); HEMATOCRIT 34.2 % (36.0-48.0); HEMOGLOBIN 10.3 g/dL (12-16); IMMATURE GRANULOCYTES 0.6 % (0-5); LYMPHOCYTES 13.5 % (15-50); MCH 24.6 pg (26.0-34.0); MCHC 30.1 g/dL (31.0-37.0); MCV 81.8 fL (80.0-100.0); MEAN PLATELET VOLUME 9.9 fL (7.4-10.4); MONOCYTES 9.1 % (2-11); NEUTROPHILS 74.7 % (40-80); PLATELET COUNT 296 10x3/uL (130-400); RBC 4.18 10x6/uL (4.00-5.40); RDW 16.3 % (11.5-14.5); WBC 6.8 10x3/uL (4.8-10.8)
[2019-10-30 05:45] LABS: ANION GAP 10.7 mmol/L (8-16); CALCIUM 8.1 mg/dL (8.5-10.1); CARBON DIOXIDE 28.5 mmol/L (21.0-32.0); CREATININE - SERUM 1.1 mg/dL (0.6-1.3); MAGNESIUM - SERUM 1.6 mg/dL (1.8-2.4); POTASSIUM - SERUM 4.2 mmol/L (3.5-5.1)
[2019-10-30 08:14] VITALS: BP 140/82
[2019-10-30 11:32] VITALS: BP 130/88; BP 135/68
--- NOTE | 2019-10-30 12:18 | EC ---
PATIENT:DERICK QUILES DATE OF SERVICE: 10/26/19 SEX: F MEDICAL RECORD: [id number] DATE OF : [birth year] LOCATION:D.M2 D.211 AGE OF PATIENT: 44 ADMISSION DATE: 10/26/19 REFERRING PHYSICIAN: INTERPRETING PHYSICIAN: SON SUBRAMANIAN MD ECHOCARDIOGRAM REPORT ECHO CHARGES 4 ECHO COMPLETE Date: 10/28/19 CLINICAL DIAGNOSIS: CHF, MR ECHOCARDIOGRAPHIC MEASUREMENTS (adult normal given) AC root (d.<3.7cm) 2.9 cm LV Septum d (<1.2 cm> 1.4 cm Valve Excursion 1.8 cm LV Septum (systole) 1.5 cm Left Atria (s.<4.0cm> 5.2 cm LVPW d(<1.2cm) 1.1 cm RV (d.<2.3cm) 3.4 cm LVPW (sytole) 1.2 cm LV diastole(<5.6CM) 5.5 cm MV E-F(>70mm/sec) cm LV systole 4.3 cm LVOT Diameter 2.1 cm MV exc.(>10mm) cm Est.ejection fraction (50-75%) % DOPPLER: LVIT cm/sec A 42 cm/sec E 84 cm/sec LA cm/sec RVSP 69.2 mmHg LVOT 61 cm/sec AOP1/2T m/s Asc. Ao 105 cm/sec RVOT 71 cm/sec RA cm/sec PA 75 cm/sec AV Gradient Peak 4.4 mmHg AV Mean 2.6 mmHg AV Area 1.6 cm MV Gradient Peak 7.3 mmHg MV Mean 2.0 mmHg MV Area cm COMMENTS: Heater Tender: Bruno OHARA Hair Tinter: 3 Dr. Silvestre TAPE# PACS Pericardial Effusion N DATE OF SERVICE: Adequate 2-D echo, Color-Flow and Spectral Doppler, and M-mode LVH is present. LV internal dimension is normal. There is marked hypokinesis of the mid anterior wall and anterior apex. Overall, function reduced. Estimated EF 30% to 35%. Aortic valve sclerosis without stenosis by Doppler interrogation. Left atrium is dilated at 5.2 cm. Mitral valve shows no prolapse. Mild MR. Right-sided chambers are grossly normal. Mild TR. ECHOCARDIOGRAM REPORT [id number] DERICK QUILES TRANSINT:[id number] Voice Confirmation ID: [id number] DOCUMENT ID: [id number] SON SUBRAMANIAN MD at 1218 CC: [id number] DICTATION DATE: 10/29/19 1139 HOTEL CONTROLLER: 10/29/19 2256 ADM IN [facility] [id number] [place] [address]
[2019-10-30 15:22] VITALS: BP 133/83
--- NOTE | 2019-10-30 19:19 | NUR ---
RECEIVED BEDSIDE REPORT. PATIENT IS ALERT AND ORIENTED, RESTING COMFOETABLY IN BED. RESPIRATIONS ARE EVEN AND UNLABORED. NO S/S OF DISTRESS. NO C/O PAIN. NEEDS MET. CALL LIGHT WITHIN REACH. WILL CPOC.
[2019-10-30 19:49] LABS: APPEARANCE CLEAR (CLEAR); BILIRUBIN NEGATIVE (NEGATIVE); COLOR YELLOW (YELLOW); GLUCOSE NEGATIVE (NEGATIVE); KETONE NEGATIVE (NEGATIVE); NITRITE NEGATIVE (NEGATIVE); PROTEIN 1+ mg/dL (NEGATIVE); SPECIFIC GRAVITY 1.015 (1.005-1.020); UROBILINOGEN NORMAL (NORMAL)
[2019-10-30 20:00] VITALS: BP 133/89
[2019-10-31] VITALS: BP 126/80
[2019-10-31 04:00] VITALS: BP 125/85
[2019-10-31 07:06] LABS: BASOPHILS 0.1 % (0-2); EOSINOPHILS 2.6 % (0-7); HEMATOCRIT 35.4 % (36.0-48.0); HEMOGLOBIN 10.6 g/dL (12-16); IMMATURE GRANULOCYTES 0.6 % (0-5); LYMPHOCYTES 16.2 % (15-50); MCH 24.5 pg (26.0-34.0); MCHC 29.9 g/dL (31.0-37.0); MCV 81.9 fL (80.0-100.0); MEAN PLATELET VOLUME 10.2 fL (7.4-10.4); NEUTROPHILS 70.5 % (40-80); PLATELET COUNT 312 10x3/uL (130-400); RBC 4.32 10x6/uL (4.00-5.40); RDW 16.4 % (11.5-14.5); WBC 6.9 10x3/uL (4.8-10.8)
[2019-10-31 07:16] LABS: INR 0.98 (0.85-1.17)
[2019-10-31 07:25] LABS: ALBUMIN 2.6 g/dL (3.4-5.0); ANION GAP 10.7 mmol/L (8-16); BILIRUBIN - TOTAL 0.86 mg/dL (0.2-1.3); CALCIUM 8.5 mg/dL (8.5-10.1); CARBON DIOXIDE 29.2 mmol/L (21.0-32.0); CREATININE - SERUM 1.2 mg/dL (0.6-1.3); PROTEIN - SERUM 6.6 g/dL (6.4-8.2)
[2019-10-31 07:26] LABS: POTASSIUM - SERUM 4.9 mmol/L (3.5-5.1)
[2019-10-31 07:58] VITALS: BP 130/87
--- NOTE | 2019-10-31 09:57 | MORECARE ---
CASE MANAGEMENT DISCHARGE SUMMARY PATIENT: DERICK QUILES UNIT: [id number] ADM DATE: 10/26/19 AGE: 44 : 77 SEX: F ROOM/BED: D.5080 AUTHOR: MINDYDOC PHYSICIAN: REFERRING PHYSICIAN: SON PACE MD DATE OF SERVICE: 10/31/19 Discharge Plan Patient Name: DERICK QUILES Facility: [facility]:[place] : 1975 Planned Disposition: Home Anticipated Discharge Date: 10/31/19 Discharge Date: Expected LOS: 5 Initial Reviewer: [email or web address] Initial Review Date: 10/27/2019 Generated: 10/31/19 10:57 am Comments DCP- Discharge Planning Updated by [email or web address]: Carolyn Mccullough on 10/29/19 2:[address] LATE ENTRY 10/27/2019 Patient Name: DERICK QUILES Admission Status: ER Accout number: [id number] Admission Date: 10-26-2019 : 1975 Admission Diagnosis: Attending: MELISSA Current LOS: 1 Anticipated DC Date: Planned Disposition: Home Primary Insurance: MEDICAID [place] PENDING Discharge Planning Comments: CM met with patient to complete initial dc planning assessment. CM educated patient on the CM role and verbal consent given by patient to complete assessment. Patient states she is staying with her [id number]-b-fsl where she is independent with her care. At discharge patient plans to return home and feels this is a safe discharge. CM discussed availability of home health, rehab services, and medical equipment. She will have family drive her home at discharge. Patient has a shower chair, bedside commode, and rollator. Patient denied known discharge needs at this time. Patient may need assistance with medications upon discharge d/t Medicaid pending. CM will continue to follow and will assist as needed with dc plans/needs. Embroidery Cutter: Carolyn Mccullough DCPIA - Discharge Planning Initial Assessment Updated by [email or web address]: Carolyn Mccullough on 10/29/19 3:30 pm * Is the patient Alert and Oriented? Yes * How many steps to enter\exit or inside your home? * PCP NO PCP * [facility] * Preadmission Environment Home with Family * ADLs Independent * Other Equipment BSC, SC, ROLLATOR * List name and contact numbers for known caregivers / representatives who currently or will assist patient after discharge: NHI QUILES - SPOUSE- [phone] * Verbal permission to speak to the caregivers and representatives has been obtained from the patient. Yes * Community resources currently utilized None * Additional services required to return to the preadmission environment? No * Can the patient safely return to the preadmission environment? Yes * Has this patient been hospitalized within the prior 30 days at any hospital? Yes External Providers External Provider: OTHER-OTHER Next Contact Date: 10/31/2019 Service Request Date: Service Type: Resolution: Reviewer: Comments: Last DP export: 10/29/19 2:44 p Patient Name: DERICK QUILES Page 99986 at 0957 All edits/amendments must be made on the electronic document DICTATION DATE: 10/31/19956 LABOR CUSTODIAN: DANG 10/31/19956 RPT#: [id number] DC DATE: STATUS: ADM IN [facility] [address] [place] [address] END OF REPORT
--- NOTE | 2019-10-31 10:04 | MORECARE ---
CASE MANAGEMENT DISCHARGE SUMMARY PATIENT: DERICK QUILES UNIT: [id number] ADM DATE: 10/26/19 AGE: 44 : 77 SEX: F ROOM/BED: D.4946 AUTHOR: MINDYDOC PHYSICIAN: REFERRING PHYSICIAN: SON PACE MD DATE OF SERVICE: 10/31/19 Discharge Plan Patient Name: DERICK QUILES Facility: [facility]:[place] : 1975 Planned Disposition: Home Anticipated Discharge Date: 10/31/19 Discharge Date: Expected LOS: 5 Initial Reviewer: [email or web address] Initial Review Date: 10/27/2019 Generated: 10/31/19 11:04 am Comments DCP- Discharge Planning Updated by [email or web address]: Carolyn Mccullough on 10/29/19 2:[address] LATE ENTRY 10/27/2019 Patient Name: DERICK QUILES Admission Status: ER Accout number: [id number] Admission Date: 10-26-2019 : 1975 Admission Diagnosis: Attending: MELISSA Current LOS: 1 Anticipated DC Date: Planned Disposition: Home Primary Insurance: MEDICAID [place] PENDING Discharge Planning Comments: CM met with patient to complete initial dc planning assessment. CM educated patient on the CM role and verbal consent given by patient to complete assessment. Patient states she is staying with her nygqdb-f-dod where she is independent with her care. At discharge patient plans to return home and feels this is a safe discharge. CM discussed availability of home health, rehab services, and medical equipment. She will have family drive her home at discharge. Patient has a shower chair, bedside commode, and rollator. Patient denied known discharge needs at this time. Patient may need assistance with medications upon discharge d/t Medicaid pending. CM will continue to follow and will assist as needed with dc plans/needs. Clinical Engineer: Carolyn Mccullough DCPIA - Discharge Planning Initial Assessment Updated by [email or web address]: Carolyn Mccullough on 10/29/19 3:30 pm * Is the patient Alert and Oriented? Yes * How many steps to enter\exit or inside your home? * PCP NO PCP * [facility] * Preadmission Environment Home with Family * ADLs Independent * Other Equipment BSC, SC, ROLLATOR * List name and contact numbers for known caregivers / representatives who currently or will assist patient after discharge: NHI QUILES - SPOUSE- [phone] * Verbal permission to speak to the caregivers and representatives has been obtained from the patient. Yes * Community resources currently utilized None * Additional services required to return to the preadmission environment? No * Can the patient safely return to the preadmission environment? Yes * Has this patient been hospitalized within the prior 30 days at any hospital? Yes Last DP export: 10/31/19 8:57 a Patient Name: DERICK QUILES Page 01189 at 1004 All edits/amendments must be made on the electronic document DICTATION DATE: 10/31/191003 STITCHER HAND: DANG 10/31/191003 RPT#: [id number] DC DATE: STATUS: ADM IN [facility] [address] [place] [address] END OF REPORT
--- NOTE | 2019-10-31 10:11 | MORECARE ---
CASE MANAGEMENT DISCHARGE SUMMARY PATIENT: DERICK QUILES UNIT: [id number] ADM DATE: 10/26/19 AGE: 44 : [birth year] SEX: F ROOM/BED: D.4851 AUTHOR: MINDY,DOC PHYSICIAN: REFERRING PHYSICIAN: SON PACE MD DATE OF SERVICE: 10/31/19 Discharge Plan Patient Name: DERICK QUILES Facility: [facility]:[place] : 1975 Planned Disposition: Home Anticipated Discharge Date: 10/31/19 Discharge Date: Expected LOS: 5 Initial Reviewer: [email or web address] Initial Review Date: 10/27/2019 Generated: 10/31/19 11:11 am Comments DCP- Discharge Planning Updated by [email or web address]: Steven Tatum on 10/31/19 9:[address] Patient Name: DERICK QUILES Encounter No: [id number] : 1975 Primary Insurance: MEDICAID [place] Anticipated DC Date: 10-31-2019 Planned Disposition: Home DCP follow-up note: CM RECEIVED PHONE REQUEST FROM UNKNOWN PERSON TO FAX EXCUSE TO [facility] COURT PT HAD COURT THIS MORNING. CM MET WITH PT IN ROOM. PT STATES IT MUST HAVE BEEN HER BROTHER TO CALL. PT ASKED CM TO FAX AN EXCUSE TO COURT SO THAT SHE WILL NOT HAVE A BENCH WARRANT OUT FOR HER ARREST. PT STATES SHE WAS SUPPOSED TO BE IN COURT AT 0900 THIS MORNING. CM DISCUSSED DISCHARGE PLANNING AND NEEDS. PT STATES SHE HAS BEEN A DIABETIC FOR ABOUT THREE YEARS, HAS BEEN ON GLIPAZIDE AND NOVALOG PRIOR TO ARRIVAL. PT REPORTS ABILITY TO AFFORD GLIPAZIDE BUT THAT NOVALOG IS EXPENSIVE. PT DOES NOT KNOW HOW MUCH IT COSTS REPORTING SHE NEVER BOUGHT ANY AND USUALLY GETS IT FROM FRIENDS. PT REPORTS ONE VIAL USUALLY LAST HER A VERY LONG TIME. PT DENIES HAVING RESOURCES TO ASSIST IN GETTING HER NOVALOG AFTER DISCHARGE HOME. PT DENIES FURTHER NEEDS, REPORTS FAMILY TO TRANSPORT HER HOME. PT PLANS TO DISCHARGE HOME TODAY. CM FAXED LETTER TO [facility] COURT, ATTENTION KING CUMMINGS AT [phone]. COPY TO CHART AND TO PT. CM TO REQUEST MEDICATION ASSISTANCE FOR INSULIN AT DISCHARGE. Steven Tatum, CASE MANAGEMENT DCP- Discharge Planning Updated by [id number]: Carolyn Mccullough on 10/29/19 2:[address] LATE ENTRY 10/27/2019 Patient Name: DERICK QUILES Admission Status: ER Accout number: [id number] Admission Date: 10-26-2019 : 1975 Admission Diagnosis: Attending: MELISSA Current LOS: 1 Anticipated DC Date: Planned Disposition: Home Primary Insurance: MEDICAID [place] PENDING Discharge Planning Comments: CM met with patient to complete initial dc planning assessment. CM educated patient on the CM role and verbal consent given by patient to complete assessment. Patient states she is staying with her [id number] where she is independent with her care. At discharge patient plans to return home and feels this is a safe discharge. CM discussed availability of home health, rehab services, and medical equipment. She will have family drive her home at discharge. Patient has a shower chair, bedside commode, and rollator. Patient denied known discharge needs at this time. Patient may need assistance with medications upon discharge d/t Medicaid pending. CM will continue to follow and will assist as needed with dc plans/needs. Telecommunications Line Mechanic: Carolyn Mccullough DCPIA - Discharge Planning Initial Assessment Updated by [email or web address]: Carolyn Mccullough on 10/29/19 3:30 pm * Is the patient Alert and Oriented? Yes * How many steps to enter\exit or inside your home? * PCP NO PCP * [facility] * Preadmission Environment Home with Family * ADLs Independent * Other Equipment BSC, SC, ROLLATOR * List name and contact numbers for known caregivers / representatives who currently or will assist patient after discharge: NHI QUILES - SPOUSE- [phone] * Verbal permission to speak to the caregivers and representatives has been obtained from the patient. Yes * Community resources currently utilized None * Additional services required to return to the preadmission environment? No * Can the patient safely return to the preadmission environment? Yes * Has this patient been hospitalized within the prior 30 days at any hospital? Yes Last DP export: 10/31/19 9:04 a Patient Name: DERICK QUILES Page [id number] at 1011 All edits/amendments must be made on the electronic document DICTATION DATE: 10/31/19 101 JUNIOR LEGAL SECRETARY: DANG 10/31/19 1011 RPT#: [id number] DC DATE: STATUS: ADM IN [facility] [address] [place] [address] END OF REPORT
[2019-10-31 11:37] VITALS: BP 105/43
[2019-10-31] MEDS ORDERED: GLIPIZIDE10 MG PO (14:06)
--- NOTE | 2019-10-31 14:44 | NUR ---
UPON ADMIT, GIFTY HAS NOT HAD A FLU SHOT. REFUSED IT UPON DISCHARGE.
--- NOTE | 2019-10-31 16:49 | NUR ---
IV AND TELEMETRY DCD. DC PLANS GIVEN. UNDERSTANDING VOICED. ESCORTED TO CAR BY W/C.
--- NOTE | 2019-10-31 17:12 | NUR ---
IV AND TELEMETRY DCD. DC PLANS GIVEN. UNDERSTANDING VOICED. ESCORTED TO CAR BY W/C.
--- NOTE | 2019-11-01 06:45 | MORECARE ---
CASE MANAGEMENT DISCHARGE SUMMARY PATIENT: DERICK QUILES UNIT: [id number] ADM DATE: 10/26/19 AGE: 44 : [birth year] SEX: F ROOM/BED: D.0571 AUTHOR: MINYD,DOC PHYSICIAN: REFERRING PHYSICIAN: SON PACE MD DATE OF SERVICE: 11/01/19 Discharge Plan Patient Name: DERICK QUILES Facility: [facility]:[place] : 1975 Planned Disposition: Home Anticipated Discharge Date: 10/31/19 Discharge Date: 10/31/2019 Expected LOS: 5 Initial Reviewer: [email or web address] Initial Review Date: 10/27/2019 Generated: 11/01/19 7:45 am Comments DCP- Discharge Planning Updated by [email or web address]: Steven Tatum on 10/31/19 9:[address] Patient Name: DERICK QUILES Encounter No: [id number] : 1975 Primary Insurance: MEDICAID [place] PENDING Anticipated DC Date: 10-31-2019 Planned Disposition: Home DCP follow-up note: CM RECEIVED PHONE REQUEST FROM UNKNOWN PERSON TO FAX EXCUSE TO [facility] COURT PT HAD COURT THIS MORNING. CM MET WITH PT IN ROOM. PT STATES IT MUST HAVE BEEN HER BROTHER TO CALL. PT ASKED CM TO FAX AN EXCUSE TO COURT SO THAT SHE WILL NOT HAVE A BENCH WARRANT OUT FOR HER ARREST. PT STATES SHE WAS SUPPOSED TO BE IN COURT AT 0900 THIS MORNING. CM DISCUSSED DISCHARGE PLANNING AND NEEDS. PT STATES SHE HAS BEEN A DIABETIC FOR ABOUT THREE YEARS, HAS BEEN ON GLIPAZIDE AND NOVALOG PRIOR TO ARRIVAL. PT REPORTS ABILITY TO AFFORD GLIPAZIDE BUT THAT NOVALOG IS EXPENSIVE. PT DOES NOT KNOW HOW MUCH IT COSTS REPORTING SHE NEVER BOUGHT ANY AND USUALLY GETS IT FROM FRIENDS. PT REPORTS ONE VIAL USUALLY LAST HER A VERY LONG TIME. PT DENIES HAVING RESOURCES TO ASSIST IN GETTING HER NOVALOG AFTER DISCHARGE HOME. PT DENIES FURTHER NEEDS, REPORTS FAMILY TO TRANSPORT HER HOME. PT PLANS TO DISCHARGE HOME TODAY. CM FAXED LETTER TO [facility] COURT, ATTENTION KING CUMM[place] AT [phone]. COPY TO CHART AND TO PT. CM TO REQUEST MEDICATION ASSISTANCE FOR INSULIN AT DISCHARGE. Steven Tatum, CASE MANAGEMENT DCP- Discharge Planning Updated by [email or web address]: Carolyn Mccullough on 10/29/19 2:[address] LATE ENTRY 10/27/2019 Patient Name: DERICK QUILES Admission Status: ER Accout number: [id number] Admission Date: 10-26-2019 : 1975 Admission Diagnosis: Attending: MELISSA Current LOS: 1 Anticipated DC Date: Planned Disposition: Home Primary Insurance: MEDICAID [place] PENDING Discharge Planning Comments: CM met with patient to complete initial dc planning assessment. CM educated patient on the CM role and verbal consent given by patient to complete assessment. Patient states she is staying with her [id number] where she is independent with her care. At discharge patient plans to return home and feels this is a safe discharge. CM discussed availability of home health, rehab services, and medical equipment. She will have family drive her home at discharge. Patient has a shower chair, bedside commode, and rollator. Patient denied known discharge needs at this time. Patient may need assistance with medications upon discharge d/t Medicaid pending. CM will continue to follow and will assist as needed with dc plans/needs. Model Maker Scale: Carolyn Mccullough DCPIA - Discharge Planning Initial Assessment Updated by [email or web address]: Carolyn Mccullough on 10/29/19 3:30 pm * Is the patient Alert and Oriented? Yes * How many steps to enter\exit or inside your home? * PCP NO PCP * [facility]acy [facility] * Preadmission Environment Home with Family * ADLs Independent * Other Equipment BSC, SC, ROLLATOR * List name and contact numbers for known caregivers / representatives who currently or will assist patient after discharge: NHI QUILES - SPOUSE- [phone] * Verbal permission to speak to the caregivers and representatives has been obtained from the patient. Yes * Community resources currently utilized None * Additional services required to return to the preadmission environment? No * Can the patient safely return to the preadmission environment? Yes * Has this patient been hospitalized within the prior 30 days at any hospital? Yes Last DP export: 10/31/19 9:11 a Patient Name: DERICK QUILES Page 92872 at 0645 All edits/amendments must be made on the electronic document DICTATION DATE: 11/01/1945 ENGINEER AUTOMATED EQUIPMENT: DANG 11/01/19 0645 RPT#: [id number] DC DATE:10/31/19 STATUS: DIS IN [facility] [address] [place] [address] END OF REPORT
== END 2019-10-31 17:13 | disposition home or self-care (01) | DRG 250 ==
LOC: D.ER 01:10 → OBSVTIME 01:38 → D.ICU 01:38 → D.M2 10-29 12:05
PROVIDERS: Emergency Medicine; Family Medicine; Internal Medicine Interventional Cardiology; Internal Medicine Nephrology; ADMIT Family Medicine; ATTEND Family Medicine
PROC: 4A023N7 Measurement of Cardiac Sampling and Pressure, Left Heart, Percutaneous Approach (ICD-10-PCS; 2019-10-26)
PROC: B2151ZZ Fluoroscopy of Left Heart using Low Osmolar Contrast (ICD-10-PCS; 2019-10-26)
PROC: 02703ZZ Dilation of Coronary Artery, One Artery, Percutaneous Approach (ICD-10-PCS; principal; 2019-10-26 13:30)
PROC: B2111ZZ Fluoroscopy of Multiple Coronary Arteries using Low Osmolar Contrast (ICD-10-PCS; 2019-10-26 13:30)
DX: I21.4 Non-ST elevation (NSTEMI) myocardial infarction (principal); I50.21 Acute systolic (congestive) heart failure; C81.90 Hodgkin lymphoma, unspecified, unspecified site; N17.9 Acute kidney failure, unspecified; E11.65 Type 2 diabetes mellitus with hyperglycemia; I11.0 Hypertensive heart disease with heart failure; G40.909 Epilepsy, unspecified, not intractable, without status epilepticus; F31.9 Bipolar disorder, unspecified; Z79.01 Long term (current) use of anticoagulants; Z89.512 Acquired absence of left leg below knee; E78.5 Hyperlipidemia, unspecified; D64.9 Anemia, unspecified; E83.42 Hypomagnesemia; E11.9 Type 2 diabetes mellitus without complications; Z91.14 Patient's other noncompliance with medication regimen

== ENCOUNTER 2019-12-01 13:24 | Inpatient (IN) | payer MEDICAID ==
[2019-12-01] VITALS (10 sets, daily range): BP systolic 102–116; BP diastolic 72–97; BMI 35.9
[~2019-12-01] VITALS: Ht 170.2 cm; Wt 106.2 kg
[~2019-12-01 13:24] MED LIST: ALBUTEROL SULF8.5 GM PO; COUMADIN4 MG PO; GLIPIZIDE10 MG PO; HYZAAR 50-12.51 TAB; KEPPRA1000 MG PO; NORVASC10 MG PO; PLAVIX75 MG PO; TOPROL XL200 MG PO
[2019-12-01 14:39] LABS: BASOPHILS 0.1 % (0-2); EOSINOPHILS 0.2 % (0-7); HEMATOCRIT 38.9 % (36.0-48.0); HEMOGLOBIN 11.8 g/dL (12-16); IMMATURE GRANULOCYTES 0.7 % (0-5); LYMPHOCYTES 4.1 % (15-50); MCH 24.9 pg (26.0-34.0); MCHC 30.3 g/dL (31.0-37.0); MCV 82.1 fL (80.0-100.0); MEAN PLATELET VOLUME 9.7 fL (7.4-10.4); NEUTROPHILS 90.9 % (40-80); PLATELET COUNT 347 10x3/uL (130-400); RBC 4.74 10x6/uL (4.00-5.40); RDW 17.7 % (11.5-14.5); WBC 14.8 10x3/uL (4.8-10.8)
[2019-12-01 14:53] LABS: ANION GAP 19.9 mmol/L (8-16); CALCIUM 8.9 mg/dL (8.5-10.1); CARBON DIOXIDE 20.7 mmol/L (21.0-32.0); CREATININE - SERUM 1.6 mg/dL (0.6-1.3); POTASSIUM - SERUM 3.6 mmol/L (3.5-5.1); PROTIME 22.4 SECONDS (11.6-15.0)
[2019-12-01 15:01] LABS: D-DIMER-QUANTITATIVE 8.2 ug/mLFEU (0.20-0.54)
[2019-12-01 15:13] LABS: ALBUMIN 3.4 g/dL (3.4-5.0); BILIRUBIN - TOTAL 0.85 mg/dL (0.2-1.3); MAGNESIUM - SERUM 1.9 mg/dL (1.8-2.4); PROTEIN - SERUM 7.5 g/dL (6.4-8.2); THYROID STIMULATING HORMONE 4.67 uIU/mL (0.36-3.74)
[2019-12-01 15:19] LABS: TROPONIN-I 0.238 ng/mL (0.000-0.060)
--- NOTE | 2019-12-01 15:29 | NUR ---
ATTEMPTED TO CALL DR [email or web address] TO NOTIFY OF TROPONIN, DR YOUNGBLOOD IN UNIT AND NOTIFIED
[2019-12-01 16:12] LABS: % SATURATION 12 % (15-55); IRON 50 ug/dl (35-150); TOTAL IRON BIND CAPACITY 405 ug/dl (260-445); UNSAT IRON BIND CAPACITY 355 ug/dl (150-375)
--- NOTE | 2019-12-01 16:23 | NUR ---
OGT INSERTED PER DR PRATER
[2019-12-01 16:39] LABS: T4 THYROXIN - FREE 1.27 ng/dL (0.76-1.46)
[2019-12-01 17:31] LABS: CKMB 4.4 U/L (0.0-3.6); CREATINE KINASE 92 UL (21-215)
[2019-12-01 17:34] LABS: TROPONIN-I 0.546 ng/mL (0.000-0.060)
--- NOTE | 2019-12-01 18:38 | NUR ---
1600-OGT PLACED, NICHOLS PLACED-DR PRATER AT BEDSIDE 1645-12LEAD DONE LAB DRAWN 1730-DR PRATER MADE AWARE OF LACTIC ACID LTVEL ECHO COMPLETED 1840 UDS SENT FLU SWAB SENT-PT AWAKENED EASILY
[2019-12-01 18:43] LABS: BILIRUBIN NEGATIVE (NEGATIVE); GLUCOSE NEGATIVE (NEGATIVE); KETONE NEGATIVE (NEGATIVE); NITRITE NEGATIVE (NEGATIVE); SPECIFIC GRAVITY 1.025 (1.005-1.020); UROBILINOGEN NORMAL (NORMAL)
[2019-12-01 18:45] LABS: EPITHELIAL CELLS 0-5 /hpf (0-5)
[2019-12-01 18:46] LABS: AMORPHOUS SEDIMENT >1+ /lpf (NONE SEEN)
[2019-12-01 18:47] LABS: BACTERIA MODERATE /hpf (NEGATIVE); GRANULAR CAST 0-5 /lpf (NONE SEEN)
--- NOTE | 2019-12-01 19:00 | NUR ---
PT IS RESTING IN BED WITH EYES CLOSED. RESTRAINTS ARE OBSERVED, C GOOD CAP REFILL TO HANDS. INTUBATION TUBE IS NOTED AND SECURE. DIPRIVAN IV IS GOING AT 20MCG/MIN TO RIGHT PORT. VITAL SIGNS ARE STABLE. WILL PERFORM FULL ASSESSMENT AND CHART. BED IS LOW,SIDE RAILSX2,CALL LIGHT WIHTIN REACH. WILL CONTINUE TO MONITOR
[2019-12-01 19:05] LABS: UDS - AMPHET NEGATIVE QUAL (NEGATIVE); UDS - BARB NEGATIVE QUAL (NEGATIVE); UDS - BENZO POSITIVE QUAL (NEGATIVE); UDS - COCAINE NEGATIVE QUAL (NEGATIVE); UDS - OPIATE POSITIVE QUAL (NEGATIVE); UDS - PCP NEGATIVE QUAL (NEGATIVE); UDS - THC NEGATIVE QUAL (NEGATIVE)
--- NOTE | 2019-12-01 21:00 | NUR ---
PT IS RESTING IN BED WITH EYES CLOSED. PT RESPONDES TO TOUCH AND PAIN. VITAL SIGNS ARE STABLE. RESTRAINTS ARE OBSERVED WITH GOOD CAP REFILL. BED IS LOW,SIDE RAILSSX2,CALL LIGHT WITHIN REACH. WILL CONITNUE TO MONITOR
[2019-12-01 22:29] LABS: CREATINE KINASE 81 UL (21-215)
--- NOTE | 2019-12-01 23:00 | NUR ---
PT IS RESTING IN BED WITH EYES CLOSED. VITAL SIGNS ARE STABLE. RESTRAINTS ARE OBSERVED AND TAKEN OFF PER PROTOCOL AND PUT BACK ON. CAP REFILL IS LESS THAN 3 SECONDS. BED IS LOW,SIDE RAILSX2,CALL LIGHT WITHIN REACH. WILL CONITNUE TO MONIOTOR
[2019-12-02] VITALS (25 sets, daily range): BP systolic 104–148; BP diastolic 71–97; Ht 170.2 cm; Wt 106.2 kg
--- NOTE | 2019-12-02 00:14 | NUR ---
WHILE CHECKING PT BLOOD SUGAR PER FINGER STICK I NOTED THAT HER HANDS HAVE GENERALIZED SWELLING AND HAS TWO RINGS ON HER RING FINGER ON BOTH HANDS, TOTALLING 4 RINGS TOTAL. I REMOVED ALL 4 AND CALLED REGISTRATION TO INFORM THEM OF VALUABLES THAT NEED TO BE LOCKED UP. THEY VERABALIZED THEY WOULD SEND SECURITY TO PICK THEM UP. PT VITALS ARE STABLE. WHEN TAKING THE RINGS OFF PT OPENED HER EYES. I EXPLAINED TO HER THAT I WAS TAKING HER RINGS OFF DUE TO HER HANDS BEING SWOLLEN AND SHE NODED HER HED UP AND DOWN. I ASKED HER IF SHE WAS HURTING AND SHE SHOCK HER HEAD BACK AND FORTH SIDE TO SIDE IN NO. RESTRAINTS ARE OBSERVED WITH GOOD CAPILARY REFILL IN HANDS. BED IS LOW,SIDE RAILSX2,CALLL LIGHT WITHIN [facility]. WILL CONINTUE TO MONITOR
--- NOTE | 2019-12-02 01:35 | NUR ---
ENDED UP TAKING PT VALUABLES(4 RINGS) TO ADMISSION BASKET SORTER AND FILLED OUT DESCRIPTION AND SIGED PAPERS AND WITNESSED PER PUTTING VALUABLES IN A SEALED BACK AND IN THE PT VALUABLE SAFE. PUT VALUABLE SHEET IN PT CHART.
--- NOTE | 2019-12-02 01:56 | NUR ---
PT WAS COUGHING SO I SUCTION HER. SHE STARTED POINTING WITH HER FINGER TO THE LEFT AND I ASKED HER IF SHE WANTED TO BE TURNED. SHE SHOOK HER HEAD UP AND DOWN YES. SO I ROLLED PT TO HER LEFT SIDE AND PROPPED WEDGES BEHIND HER BACK AND UPPER LEGS TO ALLOW FOR PRESSURE OFF OF HER BOTTOM. WHEN ASKED IF THAT WAS BETTER PT SHOOK HEAD UP AND DOWN AGAIN. RESTRAINTS WERE UNDUNE DURING TURNING AND PUT BACK ON WITH GOOD HAND CAP REFILL. VITAL SIGNS ARE STABLE. BED IS LOW,SIDE RAILSX2,CALL LIGHT WITHIN REACH. WILL CONITNUE TO MONITOR
--- NOTE | 2019-12-02 02:50 | NUR ---
PT IS RESTING IN BED WITH EYES CLOSED. SUCTION HER MOUTH DUE TO HEAVY SECREATIONS. PT TOLERATED WELL. VITAL SIGNS ARE STABLE. BED IS LOW,SIDE RAILSX2,CALL LIGHT WITHIN REACH. WILL CONITNUE TO MONITOR
[2019-12-02 04:13] LABS: BASOPHILS 0.1 % (0-2); EOSINOPHILS 1.1 % (0-7); HEMATOCRIT 32.1 % (36.0-48.0); HEMOGLOBIN 9.9 g/dL (12-16); IMMATURE GRANULOCYTES 0.2 % (0-5); LYMPHOCYTES 11.3 % (15-50); MCH 24.6 pg (26.0-34.0); MCHC 30.8 g/dL (31.0-37.0); MEAN PLATELET VOLUME 9.7 fL (7.4-10.4); MONOCYTES 5.9 % (2-11); NEUTROPHILS 81.4 % (40-80); PLATELET COUNT 313 10x3/uL (130-400); RBC 4.03 10x6/uL (4.00-5.40); RDW 17.7 % (11.5-14.5)
[2019-12-02 04:17] LABS: MCV 79.7 fL (80.0-100.0); WBC 8.1 10x3/uL (4.8-10.8)
[2019-12-02 04:23] LABS: INR 2.19 (0.85-1.17); PROTIME 24.1 SECONDS (11.6-15.0)
[2019-12-02 04:42] LABS: ALBUMIN 2.7 g/dL (3.4-5.0); ALKALINE PHOSPHATASE 90 U/L (30-120); ALT (SGPT) 24 U/L (10-68); BILIRUBIN - TOTAL 1.04 mg/dL (0.2-1.3); CALCIUM 8.6 mg/dL (8.5-10.1); CARBON DIOXIDE 25.8 mmol/L (21.0-32.0); CHLORIDE - SERUM 106 mmol/L (98-107); CKMB 1.6 U/L (0.0-3.6); CREATINE KINASE 81 UL (21-215); CREATININE - SERUM 1.7 mg/dL (0.6-1.3); MAGNESIUM - SERUM 1.6 mg/dL (1.8-2.4); POTASSIUM - SERUM 3.9 mmol/L (3.5-5.1); PROTEIN - SERUM 6.7 g/dL (6.4-8.2); SODIUM 141 mmol/L (136-145); UREA NITROGEN 35 mg/dL (7-18); eGFR NON AFRICAN AMERICAN 35 mL/min (90-120)
[2019-12-02 04:45] LABS: CALC OSMOLALITY 288 mosm/kg (275-300); GLUCOSE 107 mg/dL (74-106); TROPONIN-I 0.702 ng/mL (0.000-0.060)
--- NOTE | 2019-12-02 05:00 | NUR ---
PT IS RESTING IN BED WITH EYES CLOSED. VITAL SIGNS ARE STABLE. PERFOMRED RESTRAINT PROTOCOL. CAP REFILL TO HANDS ARE LESS THAN 3 SECONDS C GOOD CIRCULATION. TURNED PT TO RIGHT SIDE WITH POSITION BLOCKS BEHIND BACK. PT TOLERATED WELL. BED IS LOW,SIDE RAILSX2, CALL LIGHT WITHIN REACH.
--- NOTE | 2019-12-02 06:00 | NUR ---
PERFORMED ORAL CARE PER PROTOCOL. PT TOLERATED WELL. I ALSO SUCTION HER BEFORE HAND. WHEN ASKED IF SHE IS HAVING ANY PAIN SHE SHAKES HER HEAD BACK AND FORTH NO. RESTRAINTS ARE OBSERVED WITH GOOD CIRCULATION TO HANDS WITH A CAP REFILL LESS THAN 3 SECONDS. PT IS TURNED ON TO LEFT SIDE AT THIS TIME FOR COMFORT. VITAL SIGNS ARE STABLE. BED IS LOW,SIDE RAILSX2,CALL LIGHT WITHIN REACH. WILL CONTINUE TO MONITOR
--- NOTE | 2019-12-02 08:42 | NUR ---
LYING IN BED ON VENT AT THIS TIME. VSS. NO ACUTE DISTRESS NOTED. PT AWAKENS EASILY ON VENT, FOLLOWS COMMANDS, AND USES HAND GESTURES TO COMMUNICATE. DIPROVAN TITRATED TO ORDER. SEE IV FLOWSHEET. WILL CONTINUE PLAN OF CARE.
[2019-12-02 10:22] LABS: CKMB 1.2 U/L (0.0-3.6); CREATINE KINASE 73 UL (21-215)
--- NOTE | 2019-12-02 10:22 | NUR ---
DR BURNHAM HERE TO SEE PT, STATED WILL PLACE ORDERS.
[2019-12-02 10:23] LABS: TROPONIN-I 0.512 ng/mL (0.000-0.060)
--- NOTE | 2019-12-02 10:59 | NUR ---
DUPLICATE ECHO CANCELLED BY DR BURNHAM.
--- NOTE | 2019-12-02 11:59 | NUR ---
ORDER RECEIVED BY DR BURNHAM TO START DOBUTAMINE GTT AT 2.5MCG.
--- NOTE | 2019-12-02 13:40 | NUR ---
LYING IN BED ON VENT AT THIS TIME. VSS. NO ACUTE DISTRESS NOTED. PT WAKES UP WHEN SPOKEN TO, FOLLOWS COMMANDS. WILL CONTINUE PLAN OF CARE.
--- NOTE | 2019-12-02 15:40 | NUR ---
CHG BATH PROVIDED AT THIS TIME WITH TOTAL LINEN CHANGE. VSS. NO ACUTE DISTRESS NOTED. PT TURNED Q2H. ORAL CARE PROVIDED Q2H. WILL CONTINUE PLAN OF CARE.
--- NOTE | 2019-12-02 17:25 | NUR ---
FAMILY AT BEDSIDE AT THIS TIME. VSS. NO ACUTE DISTRESS NOTED. DR PRATER HAS SPOKEN WITH PTS FAMILY, UPDATES GIVEN. PT TURNED Q2H, ORAL CARE PROVIDED Q2H. WILL CONTINUE PLAN OF CARE.
--- NOTE | 2019-12-02 18:45 | NUR ---
PT IS RESTING IN BED WITH EYES OPEN. SHE OPENS EYES WHEN CALLED HER NAME. PT IS COROPERATIVE AND CAN FOLLOW DEMANDS. RESTRAINTS ARE NOTED ON UPPER EXTREMITIES BILAT WITH GOOD CAP REFILL. NICHOLS CATHETOR IS HANGING BELOW PT AND DRAINING. RIGHT CHEST PORT NOTIED WITH NO S/S OF INFILTRATION. ETT AND OGT SECURE. WILL PERFORM FULL ASSESSMENT AND DOCUMENT. VITAL SIGNS ARE STABLE. BED IS LOW,SIDE RAILSX2,CALL LIGHT WIHTIN REACH. WILL CONITNUE TO MONITOR
--- NOTE | 2019-12-02 20:12 | NUR ---
PERFORMED ORAL SUCTION AND ORAL CARE AT THIS TIME, AND WASHED PT HAIR WITH SHOWER CAP AND BRUSHED HER HAIR. LIFTED PT UP IN BED AND PROOPED HER ON HER RIGHT SIDE USING POSITIONG BLOCKS WHILE LEAVING PRESSURE AWAY FROM BUTTOCK AREA. PT TOLERATED WELL. RESTRAINTS PER RELEASED AND REAPPLIED DURING MOVING. VITAL SIGNS ARE STABLE. WHEN ASKED PT IF SHE IS IN PAIN. SHE SHOOK HER HEAD BACK AND FORTH FROM SIDE TO SIDE IN NO. BED IS LOW,SIDE RAILSX2,CALL LIGHT WITHIN REACH. WILL CONITNUE TO MONITOR
--- NOTE | 2019-12-02 22:22 | NUR ---
PT IS RESTING INBED WITH EYES CLOSED. VITAL SIGNS ARE STABLE. BED IS LOW,SIDE RAILSX2,CALL LIGHT WITHIN REACH. WILL CONTINUE TO MONITOR
--- NOTE | 2019-12-02 23:00 | NUR ---
PERFORMED SUCTION AND ORAL CARE AT THIS TIME. REPOSITIONED PT TO HER BACK. SHE TOLERATED WELL. VITAL SIGNS ARE STABLE. BED IS LOW,SIDE RAILSX2,CALL LIGTH WITHINR EACH. WILL CONITINUE TO MONITOR
[2019-12-03] VITALS (22 sets, daily range): BP systolic 101–146; BP diastolic 67–97
--- NOTE | 2019-12-03 01:36 | NUR ---
PT IS RESTING IN BED WITH EYES CLOSED. PERFORMED ORAL CARE AT THIS TIME PER REQUEST OF THE PT. I APPLIED LIP MOISTURIZER PER VENT KIT TO LIPS. I ALSO PROPPED RIGHT LEG UP ON A PILLOW WITH HEALS BRIDGED AT THIS TIME. PT TOLERATED WELL. VITAL SIGNS ARE STABLE. BED IS LOW,SIDE RAILSX2,CALL LIGTH WITHIN REACH. WILL CONTINUE TO MONITOR
--- NOTE | 2019-12-03 03:00 | NUR ---
PT IS RESTING IN BED WITH EYES CLOSED. VITAL SINGS ARE STABLE. BED IS LOW,SIDE RAISLX2,CALL LIGHT WIHTIN REACH. WILL CONTINUE TO MONITOR
[2019-12-03 04:01] LABS: HEMATOCRIT 31.3 % (36.0-48.0); HEMOGLOBIN 10.1 g/dL (12-16); MCH 25.4 pg (26.0-34.0); MCHC 32.3 g/dL (31.0-37.0); MCV 78.8 fL (80.0-100.0); MEAN PLATELET VOLUME 9.7 fL (7.4-10.4); PLATELET COUNT 351 10x3/uL (130-400); RBC 3.97 10x6/uL (4.00-5.40); RDW 18.2 % (11.5-14.5)
[2019-12-03 04:08] LABS: INR 1.9 (0.85-1.17); PROTIME 21.5 SECONDS (11.6-15.0)
[2019-12-03 04:14] LABS: ALBUMIN 2.6 g/dL (3.4-5.0); BILIRUBIN - TOTAL 1.77 mg/dL (0.2-1.3); CALCIUM 8.5 mg/dL (8.5-10.1); CARBON DIOXIDE 24.4 mmol/L (21.0-32.0); CREATININE - SERUM 1.5 mg/dL (0.6-1.3); MAGNESIUM - SERUM 1.7 mg/dL (1.8-2.4)
[2019-12-03 04:15] LABS: ANION GAP 16.8 mmol/L (8-16); POTASSIUM - SERUM 3.2 mmol/L (3.5-5.1); PROTEIN - SERUM 6.7 g/dL (6.4-8.2)
[2019-12-03 04:38] LABS: EOSINOPHILS 2 % (0-7); LYMPHOCYTES 8 % (15-50); MONOCYTES 3 % (2-11); NEUTROPHILS 83 % (40-80)
[2019-12-03 04:39] LABS: PLATELET ESTIMATE INCREASED
--- NOTE | 2019-12-03 05:00 | NUR ---
PT IS RRESTING IN BED WITH EYES CLOSED. PERFOMRED ORAL CARE AND TURNED PT TO HER LEFT SIDE WITH POSITIONING BLOCKS TO ALLOW FOR PRESSURE OFF THE COCCYX AND BUTOCK AREA. PUT A PILLOW BTW HER KNEES. PT TOLERATED WELL. VITAL SIGNS ARE STABLE. RESTRAINTS WERE RELEASED AND PUT BACK ON PER PROTOCOL AND ORDER. UPPER EXTREMITIES BILAT HAVE GOOD CAP REFILL LESS THAN 3 SECONDS AND ARE WARM AND PINK. BED IS LOW,SIDE RAILSX2,CALL LIGHT WTIHINR EACH. WILL CONTINEU TO MONITOR
--- NOTE | 2019-12-03 08:14 | NUR ---
LYING IN BED ON VENT AT THIS TIME. VSS. NO ACUTE DISTRESS NOTED. PT TURNED Q2H. ORAL CARE PROVIDED Q2H. PT WAKES UP AND FOLLOWS COMMANDS, ALSO PT ABLE TO IDENTIFY NEEDS. WILL CONTINUE PLAN OF CARE.
--- NOTE | 2019-12-03 09:53 | NUR ---
PEEP DECREASED TO [address] YOUNGBLOOD
--- NOTE | 2019-12-03 10:02 | NUR ---
ON CPAP TRIAL PER DR YOUNGBLOOD. PT TOLERATING WELL, VSS, PT CALM AND FOLLOWS COMMANDS. WILL CONTINUE PLAN OF CARE.
--- NOTE | 2019-12-03 13:25 | NUR ---
PT EXTUBATED AT THIS TIME, PLACED ON 4L NC BY RESPIRATORY THERAPIST. PT CALM, OXYGEN SATURATION 94%. VSS. WILL CONTINUE PLAN OF CARE.
--- NOTE | 2019-12-03 13:58 | NUR ---
OXYGEN SATURATION NOTED AT 88% WITH GOOD WAVEFORM ON 4L NC. OXYGEN INCEREASED TO 5L; OXYGEN SATURATION NOW AT 90%. WILL CONTINUE TO CLOSELY OBSERVE. WILL CONTINUE PLAN OF CARE.
--- NOTE | 2019-12-03 15:31 | NUR ---
PT REFUSED CHG BATH, HOWEVER ALLOWED STAFF TO PERFORM TOTAL LINEN CHANGE AND PROVIDED NICHOLS CARE. PT DENIES ANY NEEDS. NOTED STILL TO HAVE EPISODES OF OXYGEN SATURATION IN UPPER 80S OR LOWER 90S WHEN PT BREATHES THROUGH MOUTH; WHEN PT IS REMINDED TO BREATHE THROUGH NOSE HER OXYGEN SATURATION IMMEDIATELY COMES BACK UP TO 94% WITH A GOOD WAVEFORM. WILL CONTINUE PLAN OF CARE.
--- NOTE | 2019-12-03 16:14 | NUR ---
PT C/O LT ELBOW PAIN STATING SHE FEELS LIKE IT IS DIFFICULT TO MOVE HER ARM. PER DR PRATER, OBTAIN XR TO ELBOW AND SHOULDER.
--- NOTE | 2019-12-03 16:51 | NUR ---
PT TOLERATES ICE CHIPS WELL WITHOUT S/S ASPIRATION. VSS. WILL CONTINUE PLAN OF CARE.
--- NOTE | 2019-12-03 18:24 | NUR ---
UP IN BED EATING SUPPER AT THIS TIME. VSS. NO ACUTE DISTERSS NOTED. NO S/S ASPIRATION. WILL CONTINUE PLAN OF CARE.
--- NOTE | 2019-12-03 19:20 | NUR ---
REPORT RECIEVED, SHIFT ASSESSMENT COMPLETE, PT IS ALERT AND ORIENTED, ON 5L NC WITH 97% O2 SAT. VSS, CALL LIGHT IN REACH
--- NOTE | 2019-12-03 21:00 | NUR ---
NO VISITORS AT THIS TIME, WILL CON'T TO MONITOR
--- NOTE | 2019-12-03 23:00 | NUR ---
REASSESSMENT COMPLETE, NO CHANGES NOTED, WILL CON'T TO MONITOR
[2019-12-04] VITALS (24 sets, daily range): BP systolic 105–132; BP diastolic 51–85
--- NOTE | 2019-12-04 01:00 | NUR ---
PT AWAKE AT THIS TIME, NO NEEDS NOTED, WILL CON'T TO MONITOR
--- NOTE | 2019-12-04 03:15 | NUR ---
REASSESSMENT COMPLETE, NO CHANGES NOTED, PT RESTING AT THIS TIME, VSS, CALL LIGHT IN REACH
--- NOTE | 2019-12-04 07:00 | NUR ---
RE'D BEDSIDE REPORT FROM PAT, RN, PATIENT AAO, VSS, LEFT ARM GUARDED STATES SHE DOES NOT WONT TO MOVE FROM 90 DEGREE POSITION BECAUSE OF PAIN, 04/26, O2 VA HFNC, FREQUENT COUGHING, USING SUCTION YANKER, INFUSA PORT TO RIGHT CHEST, NS AT 5 CC/HR, AND DOBUTAMINE AT 2.5 MCG, NICHOLS TO GRAVITY WITH YELLOW DRAINAGE TO BAG, FSBS OBTAINED 183, PER SCALE 2 UNITS TO BE GIVEN, ASSESSMENT COMPLETED PER FLOWSHEET, CALL LIGHT AND CELL PHONE IN REACH, NO NEEDS AT THIS TIME
--- NOTE | 2019-12-04 08:00 | NUR ---
BREAKFAST TRAY TO BEDSIDE, HELPED TO REPOSITION TO SIDE OF BED, LEFT BKA NOTED
--- NOTE | 2019-12-04 08:30 | NUR ---
BLOOD DRAWN FROM RIGHT HAND WITH BUTTERFLY NEEDLE WITHOUT DIFFICULTY, SPECIMENS TAKEN TO LAB FOR EVAL
[2019-12-04 08:43] LABS: BASOPHILS 0.1 % (0-2); EOSINOPHILS 3.7 % (0-7); HEMOGLOBIN 11.4 g/dL (12-16); IMMATURE GRANULOCYTES 0.3 % (0-5); LYMPHOCYTES 5.6 % (15-50); MCH 24.7 pg (26.0-34.0); MCHC 30.8 g/dL (31.0-37.0); MCV 80.1 fL (80.0-100.0); MEAN PLATELET VOLUME 9.3 fL (7.4-10.4); MONOCYTES 6.3 % (2-11); PLATELET COUNT 281 10x3/uL (130-400); RBC 4.62 10x6/uL (4.00-5.40)
[2019-12-04 08:48] LABS: WBC 9.1 10x3/uL (4.8-10.8)
[2019-12-04 08:58] LABS: PROTIME 17.2 SECONDS (11.6-15.0)
[2019-12-04 09:05] LABS: ALBUMIN 2.8 g/dL (3.4-5.0); CARBON DIOXIDE 28.4 mmol/L (21.0-32.0); CREATININE - SERUM 1.3 mg/dL (0.6-1.3); MAGNESIUM - SERUM 1.8 mg/dL (1.8-2.4); POTASSIUM - SERUM 3.4 mmol/L (3.5-5.1); PROTEIN - SERUM 7.8 g/dL (6.4-8.2)
[2019-12-04 09:17] LABS: INR 1.42 (0.85-1.17)
--- NOTE | 2019-12-04 11:00 | NUR ---
DR DELATORRE AND DR GALLOWAY AT BEDSIDE, PATIENT C/O OF LEFT ARM PAIN, PER DR GALLOWAY HE WOULD TRY LOW DOSE STEROID TO SEE IF IT HELPS AND IF NOT WILL TRY COLCHICINE, NO OTHER NEEDS AT THIS TIME, SCHEDULED ASA GIVEN PER DEC ORDER
--- NOTE | 2019-12-04 13:30 | NUR ---
OOB TO CHAIR WITH MODERATE ASSIST, TOLERATED TRANSFER WIOTHOUT DIFFICULTY, RT AT BEDSIDE WITH BREATHING TREATMENT
--- NOTE | 2019-12-04 14:18 | NUR ---
Nutrition follow-up: Pt extubated 12/03 Diet advanced to consistent CHO PO intake ~25-50% of meals at this time Labs reviewed Wt: 212# RDN following.
--- NOTE | 2019-12-04 14:43 | MORECARE ---
CASE MANAGEMENT DISCHARGE SUMMARY PATIENT: DERICK QUILES UNIT: [id number] ADM DATE: 12/01/19 AGE: 44 : [birth year] SEX: F ROOM/BED: D.2311 AUTHOR: MINDYDOC PHYSICIAN: REFERRING PHYSICIAN: JUAN PRATER MD DATE OF SERVICE: 12/04/19 Discharge Plan Patient Name: DERICK QUILES Facility: [facility]:[place] : 1975 Planned Disposition: Home Hlth Svc w Plan Readm Anticipated Discharge Date: Discharge Date: Expected LOS: Initial Reviewer: [email or web address] Initial Review Date: 12/04/2019 Generated: 12/04/19 3:42 pm Comments DCP- Discharge Planning Updated by [email or web address]: Yany Bush on 12/04/19 1:[address] Patient Name: DERICK QUILES Admission Status: ER Accout number: [id number] Admission Date: 12-01-2019 : 1975 Admission Diagnosis: Attending: JUAN PRATER Current LOS: 3 Anticipated DC Date: Planned Disposition: Home Hlth Svc w Plan Readm Primary Insurance: MEDICAID [place] Discharge Planning Comments: CM MET WITH PATIENT AFTER OBTAINING VERBAL CONSENT. ERICKA SIGNED TO RESUME HH WITH [facility] [place] [phone]. HAS NEBULIZER AT HOME. IS ON O2 HERE, MAY NEED WALK TEST. CM TO FOLLOW AND ASSIST. Perlite Grinder: Yany Bush DCPIA - Discharge Planning Initial Assessment Updated by [email or web address]: Yany Bush on 12/04/19 2:39 pm * Is the patient Alert and Oriented? Yes * PCP WALKER * Pharmacy [facility] * Preadmission Environment Home with Family * ADLs Independent * Other Equipment NEBULIZER * Community resources currently utilized Home Health * Please name any agencies selected above. [facility] [phone]. * Can the patient safely return to the preadmission environment? Yes * Has this patient been hospitalized within the prior 30 days at any hospital? No Coverage Notice Reviewer: [email or web address] Susanna Bush Notice Issued Date-Time: 12/04/2019 14:41 Notice Type: Patient Choice Letter Notice Delivered To: Patient Relationship to Patient: Motor Teacher Name: Delivery Method: HAND - Hand Delivered Janneth Days: Prior Verbal Notification: Recipient Understood Notice: Yes Recipient Signature: Yes Med Rec Note Co-signed by Attending: Coverage Notice Comment: ERICKA ANY DME, [facility]. Patient Name: DERICK QUILES Page [id number] at 1443 All edits/amendments must be made on the electronic document DICTATION DATE: 12/04/191441 GLASSWARE DEFECT REPAIRER: DANG 12/04/191441 RPT#: [id number] DC DATE: STATUS: ADM IN [facility] [address] [place] [address] END OF REPORT
--- NOTE | 2019-12-04 15:00 | NUR ---
CHG BATH AND LINEN CHANGE COMPLETED WHILE UP IN CHAIR TOLERATED WITHIOUT DIFFICULTY
--- NOTE | 2019-12-04 17:00 | NUR ---
DINNER TRAY TO BEDSIDE, INDEPENDENT WITH SET UP AND EATING, CALL LIGHT IN REACH, NO NEEDS AT THIS TIME
--- NOTE | 2019-12-04 19:11 | NUR ---
REPORT RECIEVED, SHIFT ASSESSMENT COMPLETE, PT IS ALERT AND ORIENTED, UP IN CHAIR, ON 5L NC WITH 97% O2 SAT. ALL PPP, VSS, CALL LIGHT IN REACH
--- NOTE | 2019-12-04 21:00 | NUR ---
PT BACK TO BED, NO OTHER NEEDS NOTED, WILL CON'T TO MONITOR
--- NOTE | 2019-12-04 23:20 | NUR ---
REASSESSMENT COMPLETE, NO CHANGES NOTED, PT RESTING AT THIS TIME, DENIES ANY NEEDS OR WANTS, VSS, CALL LIGHT IN REACH
[2019-12-05] VITALS (24 sets, daily range): BP systolic 100–131; BP diastolic 56–102
--- NOTE | 2019-12-05 01:15 | NUR ---
PT RESTING AT THIS TIME, WILL CON'T TO MONITOR
--- NOTE | 2019-12-05 03:10 | NUR ---
REASSESSMENT COMPLETE, NO CHANGES NOTED, WILL CON'T TO MONITOR
[2019-12-05 04:23] LABS: BASOPHILS 0 % (0-2); EOSINOPHILS 0 % (0-7); HEMATOCRIT 35.8 % (36.0-48.0); HEMOGLOBIN 11.1 g/dL (12-16); IMMATURE GRANULOCYTES 0.3 % (0-5); LYMPHOCYTES 4.8 % (15-50); MCH 24.9 pg (26.0-34.0); MCV 80.3 fL (80.0-100.0); MEAN PLATELET VOLUME 9.7 fL (7.4-10.4); MONOCYTES 5.9 % (2-11); PLATELET COUNT 305 10x3/uL (130-400); RBC 4.46 10x6/uL (4.00-5.40); RDW 17.6 % (11.5-14.5); WBC 8.6 10x3/uL (4.8-10.8)
[2019-12-05 04:43] LABS: INR 1.27 (0.85-1.17); PROTIME 15.8 SECONDS (11.6-15.0)
--- NOTE | 2019-12-05 05:00 | NUR ---
PT RESTING COMFORTABLY AT THIS TIME, VSS, CALL LIGHT IN REACH
[2019-12-05 05:02] LABS: ALBUMIN 2.8 g/dL (3.4-5.0); ANION GAP 14.5 mmol/L (8-16); BILIRUBIN - TOTAL 0.84 mg/dL (0.2-1.3); CALCIUM 8.6 mg/dL (8.5-10.1); CARBON DIOXIDE 30.1 mmol/L (21.0-32.0); PHOSPHOROUS 5.1 mg/dL (2.5-4.9); PROTEIN - SERUM 7.2 g/dL (6.4-8.2)
[2019-12-05 05:07] LABS: CREATININE - SERUM 1.7 mg/dL (0.6-1.3); POTASSIUM - SERUM 4.6 mmol/L (3.5-5.1)
--- NOTE | 2019-12-05 07:00 | NUR ---
SLEEPING WITH NO SIGN OF DISTRESS, VSS, AROUSED TO VERBAL STIMULI, ASSESSMENT COMPLETED PER FLOWSHEET, DENIES PAIN, CALL LIGHT IN REACH, NO OTHER NEEDS AT THIS TIME
--- NOTE | 2019-12-05 08:15 | NUR ---
BREAKFAST TRAY TO BVEDSIDE, ASSIST WITH SET UP INDEPENDENT WITH EATING
--- NOTE | 2019-12-05 11:00 | NUR ---
OOB TO CHAIR WITH MINIMAL ASSIST, TRANSFERS BY PIVOTING ON RIGHT LEG AND BOTHE ARMS,, TOLERATED WITHOUT DIFFICULTY, NO OTHER ACUTE CHANGE FROM PREVIOUS ASSESSMENT
--- NOTE | 2019-12-05 13:30 | NUR ---
NICHOLS DC'D WITHOUT DIFFICULTY, 1800 ML IN BAG, PERICARE COMPLETED,
--- NOTE | 2019-12-05 14:45 | NUR ---
CALLED TO ROOM, BSC TAKEN TO ROOM, OOC TO BSC, URINATED 200 CC TO PAIN, BTC WITH ASSIST, NO OTHER ACUTEC CHANGE FROM PREVIOUS ASSESSMENT
--- NOTE | 2019-12-05 17:00 | NUR ---
DINNER TRAY TO CHAIRSIDE, INDEPENDENT WITH SET UP AND EATING
--- NOTE | 2019-12-05 19:24 | NUR ---
REPORT RECIEVED, SHIFT ASSESSMENT COMPLETE, PT IS ALERT AND ORIENTED ON 5L NC WITH 97% O2 SAT, ALL PPP, VSS, CALL LIGHT IN REACH
--- NOTE | 2019-12-05 21:04 | NUR ---
NO VISITORS AT THIS TIME, WILL CON'T TO MONITOR
--- NOTE | 2019-12-05 23:15 | NUR ---
REASSESSMENT COMPLETE, NO CHANGES NOTED, PT RESTING COMFORTABLY AT THIS TIME, VSS, CALL LIGHT IN REACH
[2019-12-06] VITALS (11 sets, daily range): BP systolic 102–139; BP diastolic 74–93
--- NOTE | 2019-12-06 01:15 | NUR ---
PT RESTING AT THIS TIME, VSS, CALL LIGHT IN REACH
--- NOTE | 2019-12-06 03:25 | NUR ---
REASSESSMENT COMPLETE, NO CHANGES NOTED,
--- NOTE | 2019-12-06 05:00 | NUR ---
NO NEEDS NOTED AT THIS TIME,
[2019-12-06 05:52] LABS: ALBUMIN 2.9 g/dL (3.4-5.0); ANION GAP 19.1 mmol/L (8-16); BILIRUBIN - TOTAL 0.75 mg/dL (0.2-1.3); CALCIUM 8.5 mg/dL (8.5-10.1); CARBON DIOXIDE 26.5 mmol/L (21.0-32.0); CREATININE - SERUM 1.4 mg/dL (0.6-1.3); MAGNESIUM - SERUM 1.7 mg/dL (1.8-2.4); POTASSIUM - SERUM 4.6 mmol/L (3.5-5.1); PROTEIN - SERUM 7.2 g/dL (6.4-8.2)
[2019-12-06 05:56] LABS: INR 1.17 (0.85-1.17); PROTIME 14.8 SECONDS (11.6-15.0)
[2019-12-06 07:05] LABS: BASOPHILS 0.1 % (0-2); EOSINOPHILS 0.7 % (0-7); HEMATOCRIT 38.6 % (36.0-48.0); HEMOGLOBIN 11.7 g/dL (12-16); IMMATURE GRANULOCYTES 0.5 % (0-5); LYMPHOCYTES 5.3 % (15-50); MCH 24.7 pg (26.0-34.0); MCHC 30.3 g/dL (31.0-37.0); MCV 81.6 fL (80.0-100.0); MEAN PLATELET VOLUME 10.4 fL (7.4-10.4); MONOCYTES 2.5 % (2-11); NEUTROPHILS 90.9 % (40-80); PLATELET COUNT 336 10x3/uL (130-400); RBC 4.73 10x6/uL (4.00-5.40); RDW 17.6 % (11.5-14.5); WBC 8.5 10x3/uL (4.8-10.8)
--- NOTE | 2019-12-06 09:22 | NUR ---
Nutrition follow-up: Diet: ADA consistent CHO PO intake 100% of most meals Labs reviewed; Lantus added 12/05 for better glucose control Medrol dose pack started Wt: 211# PO intake continues to be good RDN following.
--- NOTE | 2019-12-06 11:50 | NUR ---
DOBUTAMINE DRIP DC'D, PER DR. GALLOWAY, ORDER GIVEN TO TRANSFER OUT OF ICU
--- NOTE | 2019-12-06 13:36 | NUR ---
PT USED THE BEDSIDE COMMODE. PT TRANSFERED HER SELF WITH NO ISSUES. SMALL CLEAR, YELLOW URINE NOTED. PT PREFORMED SELF PERICARE WITH NO ISSUES.
[2019-12-07] VITALS: BP 104/68
[2019-12-07 04:00] VITALS: BP 110/76
--- NOTE | 2019-12-07 04:34 | NUR ---
I HAVE BEEN UNABLE TO SCAN PTS ARM BAND. PUT A NEW ARM BAND ON HER AND WHEN I SCAN IT, IT SAYS MUST SCAN PATIENT FIRST. MEDS ARE SCANNING THEY SHOULD. WILL PASS ALONG.
--- NOTE | 2019-12-07 04:41 | NUR ---
UNABLE TO DRAW ANY BLOOD FROM PTS PORT. PT STATES THEY HAVE NOT BEEN ABLE TO DRAW FROM IT THE LAST FEW MORNINGS. ANTHONY IN LAB NOTIFIED.
[2019-12-07 06:38] LABS: ANION GAP 14.3 mmol/L (8-16); CALCIUM 9.5 mg/dL (8.5-10.1); CARBON DIOXIDE 29.2 mmol/L (21.0-32.0); CREATININE - SERUM 1.3 mg/dL (0.6-1.3); POTASSIUM - SERUM 4.5 mmol/L (3.5-5.1)
[2019-12-07 06:41] LABS: MAGNESIUM - SERUM 2.2 mg/dL (1.8-2.4)
--- NOTE | 2019-12-07 07:57 | NUR ---
pt. in bed, aao x 3, resp even and unlabored. no distress noted. pt has no concerns or wants noted at this time.
--- NOTE | 2019-12-07 10:06 | NUR ---
I have reviewed this patient and I concur with the Shift Assessment completed by the Licensed Practical Nurse today this shift.
[2019-12-07 11:53] LABS: BASOPHILS 0.1 % (0-2); EOSINOPHILS 1.1 % (0-7); HEMATOCRIT 40.4 % (36.0-48.0); HEMOGLOBIN 12.6 g/dL (12-16); IMMATURE GRANULOCYTES 1.2 % (0-5); MCH 24.8 pg (26.0-34.0); MCHC 31.2 g/dL (31.0-37.0); MCV 79.4 fL (80.0-100.0); MEAN PLATELET VOLUME 10.1 fL (7.4-10.4); MONOCYTES 9.6 % (2-11); PLATELET COUNT 348 10x3/uL (130-400); RBC 5.09 10x6/uL (4.00-5.40); RDW 17.5 % (11.5-14.5); WBC 8.8 10x3/uL (4.8-10.8)
[2019-12-07] MEDS ORDERED: KLONOPIN1 MG PO (19:21)
[2019-12-07] MEDS ORDERED: TRAZODONE HCL150 MG PO (19:22)
--- NOTE | 2019-12-07 19:29 | NUR ---
RECEIVED BEDSIDE REPORT. PATIENT IS ALERT AND ORIENTED, RESPIRATIONS ARE EVEN AND UNLABORED. PATIENT IS RECEIVING SCHEDULED BREATHING TREATMENT AT THIS TIME. NO S/S OF DISTRESS. NO C/O PAIN. CALL LIGHT WITHIN REACH. WILL CPOC.
--- NOTE | 2019-12-08 00:09 | NUR ---
PATIENT IS RESTING COMFORTABLY IN BED. RESPIRATIONS ARE EVEN AND UNLABORED. NO S/S OF DISTRESS. CALLL IGHT WITHIN REACH. WILL CPOC.
[2019-12-08 05:11] LABS: BASOPHILS 0.2 % (0-2); HEMATOCRIT 40.5 % (36.0-48.0); HEMOGLOBIN 12.2 g/dL (12-16); IMMATURE GRANULOCYTES 2.5 % (0-5); LYMPHOCYTES 11.7 % (15-50); MCH 24.7 pg (26.0-34.0); MCHC 30.1 g/dL (31.0-37.0); MEAN PLATELET VOLUME 9.9 fL (7.4-10.4); MONOCYTES 6.8 % (2-11); NEUTROPHILS 77.8 % (40-80); PLATELET COUNT 360 10x3/uL (130-400); RBC 4.94 10x6/uL (4.00-5.40); RDW 17.6 % (11.5-14.5); WBC 9.5 10x3/uL (4.8-10.8)
[2019-12-08 05:34] LABS: ANION GAP 11.4 mmol/L (8-16); CALCIUM 8.9 mg/dL (8.5-10.1); CARBON DIOXIDE 32.7 mmol/L (21.0-32.0); CREATININE - SERUM 1.6 mg/dL (0.6-1.3); MAGNESIUM - SERUM 1.8 mg/dL (1.8-2.4); POTASSIUM - SERUM 4.1 mmol/L (3.5-5.1)
[2019-12-08 10:01] VITALS: BP 120/80
[2019-12-08 13:49] VITALS: BP 117/75
[2019-12-08 16:26] VITALS: BP 122/83
--- NOTE | 2019-12-08 19:15 | NUR ---
RECEIVED SITTING UP ON SIDE OF BED. ALERT AND ORIENTED X4. RESP EVEN AND UNLABORED. PORT TO RIGHT CHEST AND IV TO RT FA SL. LT BKA. UP AD HCAN WITH PROSTESIS. TELEMETRY IN PLACE. DENIES ANY NEEDS AT THIS TIME.
[2019-12-08 20:00] VITALS: BP 119/83
[2019-12-09] VITALS: BP 110/76
[2019-12-09 04:00] VITALS: BP 117/83
[2019-12-09 04:55] LABS: BASOPHILS 0.2 % (0-2); HEMATOCRIT 39.1 % (36.0-48.0); HEMOGLOBIN 11.9 g/dL (12-16); IMMATURE GRANULOCYTES 4.3 % (0-5); LYMPHOCYTES 9.6 % (15-50); MCH 24.5 pg (26.0-34.0); MCHC 30.4 g/dL (31.0-37.0); MCV 80.5 fL (80.0-100.0); MEAN PLATELET VOLUME 9.9 fL (7.4-10.4); MONOCYTES 9.5 % (2-11); NEUTROPHILS 74.4 % (40-80); PLATELET COUNT 329 10x3/uL (130-400); RBC 4.86 10x6/uL (4.00-5.40); RDW 17.3 % (11.5-14.5); WBC 9.5 10x3/uL (4.8-10.8)
[2019-12-09 05:37] LABS: ANION GAP 10.2 mmol/L (8-16); CALCIUM 8.6 mg/dL (8.5-10.1); CARBON DIOXIDE 31.4 mmol/L (21.0-32.0); CREATININE - SERUM 1.4 mg/dL (0.6-1.3); MAGNESIUM - SERUM 1.8 mg/dL (1.8-2.4); POTASSIUM - SERUM 3.6 mmol/L (3.5-5.1)
--- NOTE | 2019-12-09 07:15 | NUR ---
RECEIVED PT IN BED EYES CLOSED RESP UNLABORED SKIN W/D COLOR WNL NAD NOTED
[2019-12-09 09:52] VITALS: BP 134/92
[2019-12-09 12:00] VITALS: BP 102/72
[2019-12-09 12:08] LABS: INR 1.05 (0.85-1.17); PROTIME 13.6 SECONDS (11.6-15.0)
--- NOTE | 2019-12-09 17:02 | MORECARE ---
CASE MANAGEMENT DISCHARGE SUMMARY PATIENT: DERICK QUILES UNIT: [id number] ADM DATE: 12/01/19 AGE: 44 : 76 SEX: F ROOM/BED: D.3657 AUTHOR: WILLIE GUILLEN PHYSICIAN: REFERRING PHYSICIAN: JUAN PRATER MD DATE OF SERVICE: 12/09/19 Discharge Plan Patient Name: DERICK QUILES Facility: [facility]:[place] : 1975 Planned Disposition: Home Hlth Svc w Plan Readm Anticipated Discharge Date: Discharge Date: Expected LOS: Initial Reviewer: [id number] Initial Review Date: 12/04/2019 Generated: 12/09/19 6:02 pm Comments DCP- Discharge Planning Updated by [email or web address]: Yany Bush on 12/09/19 3:[address] Patient Name: DERICK QUILES Admission Status: ER Accout number: [id number] Admission Date: 12-01-2019 : 1975 Admission Diagnosis: Attending: JUAN PRATER Current LOS: 8 Anticipated DC Date: Planned Disposition: Home Hlth Svc w Plan Readm Primary Insurance: MEDICAID [place] Discharge Planning Comments:WHEN PATIENT IS STABLE FOR DISCHARGE WE WILL GET A WALK TEST TO ASSESS O2 NEEDS. ERICKA SIGNED FOR [facility]. CM WILL CONTACT [facility] FOR O2 NEEDS. Rn Ortho: Yany Bush DCP- Discharge Planning Updated by [email or web address]: Yany Bush on 12/04/19 1:[address] Patient Name: DERICK QUILES Admission Status: ER Accout number: [id number] Admission Date: 12-01-2019 : 1975 Admission Diagnosis: Attending: JUAN PRATER Current LOS: 3 Anticipated DC Date: Planned Disposition: Home Hlth Svc w Plan Readm Primary Insurance: MEDICAID [place] Discharge Planning Comments: CM MET WITH PATIENT AFTER OBTAINING VERBAL CONSENT. ERICKA SIGNED TO RESUME WITH [facility] [place] [phone]. HAS NEBULIZER AT HOME. IS ON O2 HERE, MAY NEED WALK TEST. CM TO FOLLOW AND ASSIST. Rn Ortho: Yany Bush DCPIA - Discharge Planning Initial Assessment Updated by [email or web address]: Yany Bush on 12/04/19 2:39 pm * Is the patient Alert and Oriented? Yes * PCP WALKER * Pharmacy [facility] * Preadmission Environment Home with Family * ADLs Independent * Other Equipment NEBULIZER * Community resources currently utilized Home Health * Please name any agencies selected above. [facility] [phone]. * Can the patient safely return to the preadmission environment? Yes * Has this patient been hospitalized within the prior 30 days at any hospital? No Coverage Notice Reviewer: [id number] Susanna Bush Notice Issued Date-Time: 12/04/2019 14:41 Notice Type: Patient Choice Letter Notice Delivered To: Patient Relationship to Patient: Mortgage Protection Sales Name: Delivery Method: HAND - Hand Delivered Janneth Days: Prior Verbal Notification: Recipient Understood Notice: Yes Recipient Signature: Yes Med Rec Note Co-signed by Attending: Coverage Notice Comment: ERICKA ANY DME, [facility]. Last DP export: 12/04/19 1:43 p Patient Name: DERICK QUILES Page 53315 at 1702 All edits/amendments must be made on the electronic document DICTATION DATE: 12/09/191701 CYBER FORENSICS ANALYST: DANG 12/09/19 170 RPT#: [id number] DC DATE: STATUS: ADM IN [facility] [address] [place] [address] END OF REPORT
[2019-12-09 17:04] VITALS: BP 118/85
--- NOTE | 2019-12-09 19:16 | NUR ---
RECEIVED UP IN BED WITH EYES OPEN AND TV ON. TALKING ON TELEPHONE. ALERT AND ORIENTED X4. UP AD CHAN. ABLE TO ATTACH PROSTHESIS TO BKA. TELEMETRY IN PLACE. PORT TO RT CHEST AND RT FA SL. DENIES ANY NEEDS AT THIS TIME.
[2019-12-09 20:00] VITALS: BP 110/80
[2019-12-10] VITALS: BP 104/71
[2019-12-10 04:00] VITALS: BP 119/82
[2019-12-10 05:00] LABS: BASOPHILS 0.2 % (0-2); EOSINOPHILS 2.6 % (0-7); HEMATOCRIT 39.9 % (36.0-48.0); HEMOGLOBIN 12.4 g/dL (12-16); IMMATURE GRANULOCYTES 4.7 % (0-5); LYMPHOCYTES 10.2 % (15-50); MCH 24.9 pg (26.0-34.0); MCHC 31.1 g/dL (31.0-37.0); MCV 80.3 fL (80.0-100.0); MEAN PLATELET VOLUME 9.5 fL (7.4-10.4); MONOCYTES 8.4 % (2-11); NEUTROPHILS 73.9 % (40-80); PLATELET COUNT 346 10x3/uL (130-400); RBC 4.97 10x6/uL (4.00-5.40); RDW 17.8 % (11.5-14.5); WBC 10.1 10x3/uL (4.8-10.8)
[2019-12-10 05:14] LABS: INR 1.06 (0.85-1.17); PROTIME 13.8 SECONDS (11.6-15.0)
[2019-12-10 05:19] LABS: CALCIUM 8.5 mg/dL (8.5-10.1); CARBON DIOXIDE 33.1 mmol/L (21.0-32.0); CREATININE - SERUM 1.2 mg/dL (0.6-1.3); MAGNESIUM - SERUM 1.7 mg/dL (1.8-2.4); POTASSIUM - SERUM 4.1 mmol/L (3.5-5.1)
[2019-12-10 08:36] VITALS: BP 127/88
--- NOTE | 2019-12-10 09:58 | NUR ---
NO TX GIVEN PT HAVING ULTRASOUND
--- NOTE | 2019-12-10 11:10 | MORECARE ---
CASE MANAGEMENT DISCHARGE SUMMARY PATIENT: DERICK QUILES UNIT: [id number] ADM DATE: 12/01/19 AGE: 44 : 77 SEX: F ROOM/BED: D.1318 AUTHOR: WILLIE GUILLEN PHYSICIAN: REFERRING PHYSICIAN: JUAN PRATER MD DATE OF SERVICE: 12/10/19 Discharge Plan Patient Name: DERICK QUILES Facility: [facility]:[place] : 1975 Planned Disposition: Home Hlth Svc w Plan Readm Anticipated Discharge Date: Discharge Date: Expected LOS: Initial Reviewer: [id number] Initial Review Date: 12/04/2019 Generated: 12/10/19 12:09 pm Comments DCP- Discharge Planning Updated by [id number]: Yany Bush on 12/10/19 10:[address] Patient Name: DERICK QUILES Admission Status: ER Accout number: [id number] Admission Date: 12-01-2019 : 1975 Admission Diagnosis: Attending: JUAN PRATER Current LOS: 9 Anticipated DC Date: Planned Disposition: Home Hlth Svc w Plan Readm Primary Insurance: MEDICAID [place] Discharge Planning Comments: I SPOKE TO [facility] FOR NEBULIZER AND POSSIBLE 02 NEEDS FOR PATIENT. I AM FAXING OVER DOCUMENTS, [facility] WILL DELIVER DME TODAY OR TOMORROW, OR WILL DELIVER IF DC'D SOONER. Voltage Tester: Yany Bush DCP- Discharge Planning Updated by [email or web address]: Yany Bush on 12/09/19 3:[address] Patient Name: DERICK QUILES Admission Status: ER Accout number: [id number] Admission Date: 12-01-2019 : 1975 Admission Diagnosis: Attending: JUAN PRATER Current LOS: 8 Anticipated DC Date: Planned Disposition: Home Hlth Svc w Plan Readm Primary Insurance: MEDICAID [place] Discharge Planning Comments:WHEN PATIENT IS STABLE FOR DISCHARGE WE WILL GET A WALK TEST TO ASSESS O2 NEEDS. ERICKA SIGNED FOR [facility]. CM WILL CONTACT [facility] FOR O2 NEEDS. Voltage Tester: Yany Bush DCP- Discharge Planning Updated by [email or web address]: Yany Bush on 12/04/19 1:[address] Patient Name: DERICK QUILES Admission Status: ER Accout number: [id number] Admission Date: 12-01-2019 : 1975 Admission Diagnosis: Attending: JUAN PRATER Current LOS: 3 Anticipated DC Date: Planned Disposition: Home Hlth Svc w Plan Readm Primary Insurance: MEDICAID [place] Discharge Planning Comments: CM MET WITH PATIENT AFTER OBTAINING VERBAL CONSENT. ERICKA SIGNED TO RESUME HH WITH [facility] IN [place] [phone]. HAS NEBULIZER AT HOME. IS ON O2 HERE, MAY NEED WALK TEST. CM TO FOLLOW AND ASSIST. Voltage Tester: Yany Bush DCPIA - Discharge Planning Initial Assessment Updated by [id number]: Yany Bush on 12/04/19 2:39 pm * Is the patient Alert and Oriented? Yes * PCP WALKER * Pharmacy [facility] * Preadmission Environment Home with Family * ADLs Independent * Other Equipment NEBULIZER * Community resources currently utilized Home Health * Please name any agencies selected above. [facility] [phone]. * Can the patient safely return to the preadmission environment? Yes * Has this patient been hospitalized within the prior 30 days at any hospital? No Coverage Notice Reviewer: [id number] Susanna Bush Notice Issued Date-Time: 12/04/2019 14:41 Notice Type: Patient Choice Letter Notice Delivered To: Patient Relationship to Patient: Resolution Agent Name: Delivery Method: HAND - Hand Delivered Janneth Days: Prior Verbal Notification: Recipient Understood Notice: Yes Recipient Signature: Yes Med Rec Note Co-signed by Attending: Coverage Notice Comment: ERICKA ANY DME, [facility]. Last DP export: 12/09/19 4:02 p Patient Name: DERICK QUILES Page 25784 at 1110 All edits/amendments must be made on the electronic document DICTATION DATE: 12/10/19 110 GENETIC SCIENTIST: DANG 12/10/19 1109 RPT#: [id number] DC DATE: STATUS: ADM IN [facility] [address] [place] [address] END OF REPORT
--- NOTE | 2019-12-10 11:28 | MORECARE ---
CASE MANAGEMENT DISCHARGE SUMMARY PATIENT: DERICK QUILES UNIT: [id number] ADM DATE: 12/01/19 AGE: 44 : 77 SEX: F ROOM/BED: D.3609 AUTHOR: WILLIE GUILLEN PHYSICIAN: REFERRING PHYSICIAN: JUAN PRATER MD DATE OF SERVICE: 12/10/19 Discharge Plan Patient Name: DERICK QUILES Facility: [facility]:[place] : 1975 Planned Disposition: Home Hlth Svc w Plan Readm Anticipated Discharge Date: Discharge Date: Expected LOS: Initial Reviewer: [id number] Initial Review Date: 12/04/2019 Generated: 12/10/19 12:28 pm Comments DCP- Discharge Planning Updated by [email or web address]: Yany Bush on 12/10/19 10:[address] Patient Name: DERICK QUILES Admission Status: ER Accout number: [id number] Admission Date: 12-01-2019 : 1975 Admission Diagnosis: Attending: JUAN PRATER Current LOS: 9 Anticipated DC Date: Planned Disposition: Home Hlth Svc w Plan Readm Primary Insurance: MEDICAID [place] Discharge Planning Comments: I SPOKE TO [facility] FOR NEBULIZER AND POSSIBLE 02 NEEDS FOR PATIENT. I AM FAXING OVER DOCUMENTS, [facility] WILL DELIVER DME TODAY OR TOMORROW, OR WILL DELIVER IF DC'D SOONER. Rotary Rock Drilling Machine Operator: Yany Bush DCP- Discharge Planning Updated by [id number]: Yany Bush on 12/09/19 3:[address] Patient Name: DERICK QUILES Admission Status: ER Accout number: [id number] Admission Date: 12-01-2019 : 1975 Admission Diagnosis: Attending: JUAN PRATER Current LOS: 8 Anticipated DC Date: Planned Disposition: Home Hlth Svc w Plan Readm Primary Insurance: MEDICAID [place] Discharge Planning Comments:WHEN PATIENT IS STABLE FOR DISCHARGE WE WILL GET A WALK TEST TO ASSESS O2 NEEDS. ERICKA SIGNED FOR [facility]. CM WILL CONTACT [facility] FOR O2 NEEDS. Rotary Rock Drilling Machine Operator: Yany Bush DCP- Discharge Planning Updated by [id number]: Yany Bush on 12/04/19 1:[address] Patient Name: DERICK QUILES Admission Status: ER Accout number: [id number] Admission Date: 12-01-2019 : 1975 Admission Diagnosis: Attending: JUAN PRATER Current LOS: 3 Anticipated DC Date: Planned Disposition: Home Hlth Svc w Plan Readm Primary Insurance: MEDICAID [place] Discharge Planning Comments: CM MET WITH PATIENT AFTER OBTAINING VERBAL CONSENT. ERICKA SIGNED TO RESUME WITH [facility] [place] [phone]. HAS NEBULIZER AT HOME. IS ON O2 HERE, MAY NEED WALK TEST. CM TO FOLLOW AND ASSIST. Rotary Rock Drilling Machine Operator: Yany Bush DCPIA - Discharge Planning Initial Assessment Updated by [email or web address]: Yany Bush on 12/04/19 2:39 pm * Is the patient Alert and Oriented? Yes * PCP WALKER * Pharmacy [facility] * Preadmission Environment Home with Family * ADLs Independent * Other Equipment NEBULIZER * Community resources currently utilized Home Health * Please name any agencies selected above. [facility] [phone]. * Can the patient safely return to the preadmission environment? Yes * Has this patient been hospitalized within the prior 30 days at any hospital? No External Providers External [facility] Contact Date: Service Request Date: Service Type: Resolution: Reviewer: Comments: Coverage Notice Reviewer: [id number] - Yany Rachelle Notice Issued Date-Time: 12/04/2019 14:41 Notice Type: Patient Choice Letter Notice Delivered To: Patient Relationship to Patient: Food Tester Name: Delivery Method: HAND - Hand Delivered Janneth Days: Prior Verbal Notification: Recipient Understood Notice: Yes Recipient Signature: Yes Med Rec Note Co-signed by Attending: Coverage Notice Comment: ERICKA ANY DME, [facility]. Last DP export: 12/10/19 10:10 a Patient Name: DERICK QUILES Page 87045 at 1128 All edits/amendments must be made on the electronic document DICTATION DATE: 12/10/191127 BELLHOP SERVICE CAPTAIN: DANG 12/10/19 1128 RPT#: [id number] DC DATE: STATUS: ADM IN [place] [address] [place] [address] END OF REPORT
[2019-12-10 12:22] VITALS: BP 113/76
--- NOTE | 2019-12-10 16:43 | MORECARE ---
CASE MANAGEMENT DISCHARGE SUMMARY PATIENT: DERICK QUILES UNIT: [id number] ADM DATE: 12/01/19 AGE: 44 : 77 SEX: F ROOM/BED: D.3520 AUTHOR: WILLIE GUILLEN PHYSICIAN: REFERRING PHYSICIAN: JUAN PRATER MD DATE OF SERVICE: 12/10/19 Discharge Plan Patient Name: DERICK QUILES Facility: [facility]:[place] : 1975 Planned Disposition: Home Hlth Svc w Plan Readm Anticipated Discharge Date: Discharge Date: Expected LOS: Initial Reviewer: [id number] Initial Review Date: 12/04/2019 Generated: 12/10/19 5:42 pm Comments DCP- Discharge Planning Updated by [email or web address]: Yany Bush on 12/10/19 10:[address] Patient Name: DERICK QUILES Admission Status: ER Accout number: [id number] Admission Date: 12-01-2019 : 1975 Admission Diagnosis: Attending: JUAN PRATER Current LOS: 9 Anticipated DC Date: Planned Disposition: Home Hlth Svc w Plan Readm Primary Insurance: MEDICAID [place] Discharge Planning Comments: I SPOKE TO [facility] FOR NEBULIZER AND POSSIBLE 02 NEEDS FOR PATIENT. I AM FAXING OVER DOCUMENTS, [facility] WILL DELIVER DME TODAY OR TOMORROW, OR WILL DELIVER IF DC'D SOONER. Plunger Shovel Operator: Yany Bush DCP- Discharge Planning Updated by [email or web address]: Yany Bush on 12/09/19 3:[address] Patient Name: DERICK QUILES Admission Status: ER Accout number: [id number] Admission Date: 12-01-2019 : 1975 Admission Diagnosis: Attending: JUAN PRATER Current LOS: 8 Anticipated DC Date: Planned Disposition: Home Hlth Svc w Plan Readm Primary Insurance: MEDICAID [place] Discharge Planning Comments:WHEN PATIENT IS STABLE FOR DISCHARGE WE WILL GET A WALK TEST TO ASSESS O2 NEEDS. ERICKA SIGNED FOR [facility]. CM WILL CONTACT [facility] FOR O2 NEEDS. Plunger Shovel Operator: Yany Bush DCP- Discharge Planning Updated by [id number]: Yany Bush on 12/04/19 1:[address] Patient Name: DERICK QUILES Admission Status: ER Accout number: [id number] Admission Date: 12-01-2019 : 1975 Admission Diagnosis: Attending: JUAN PRATER Current LOS: 3 Anticipated DC Date: Planned Disposition: Home Hlth Svc w Plan Readm Primary Insurance: MEDICAID [place] Discharge Planning Comments: CM MET WITH PATIENT AFTER OBTAINING VERBAL CONSENT. ERICKA SIGNED TO RESUME HH WITH [facility] IN [place] [phone]. HAS NEBULIZER AT HOME. IS ON O2 HERE, MAY NEED WALK TEST. CM TO FOLLOW AND ASSIST. Plunger Shovel Operator: Yany Bush DCPIA - Discharge Planning Initial Assessment Updated by [email or web address]: Yany Bush on 12/04/19 2:39 pm * Is the patient Alert and Oriented? Yes * PCP WALKER * Pharmacy [facility] * Preadmission Environment Home with Family * ADLs Independent * Other Equipment NEBULIZER * Community resources currently utilized Home Health * Please name any agencies selected above. [facility] [phone]. * Can the patient safely return to the preadmission environment? Yes * Has this patient been hospitalized within the prior 30 days at any hospital? No Coverage Notice Reviewer: [id number] Susanna Bush Notice Issued Date-Time: 12/04/2019 14:41 Notice Type: Patient Choice Letter Notice Delivered To: Patient Relationship to Patient: Licensed Mental Health Counselor Name: Delivery Method: HAND - Hand Delivered Janneth Days: Prior Verbal Notification: Recipient Understood Notice: Yes Recipient Signature: Yes Med Rec Note Co-signed by Attending: Coverage Notice Comment: ERICKA ANY DME, [facility]. Last DP export: 12/10/19 10:28 a Patient Name: DERICK QUILES Page 27801 at 1643 All edits/amendments must be made on the electronic document DICTATION DATE: 12/10/191641 CRIMINAL PSYCHOLOGIST: DANG 12/10/191641 RPT#: [id number] DC DATE: STATUS: ADM IN [facility] [address] [place] [address] END OF REPORT
[2019-12-10 17:24] VITALS: BP 121/79
--- NOTE | 2019-12-10 19:14 | NUR ---
RECEIVED LAYING IN BED WITH EYES CLOSED. EASILY AROUSES WITH VERBAL STIMULI. IV TO RT FA SL. BKA LEFT LEG. HAS PROSTHESIS AND ABLE TO APPY BY HERSELF. UP TO B/R AD CHAN. DENIES ANY NEEDS AT THIS TIME.
[2019-12-10 20:00] VITALS: BP 111/70
[2019-12-11] VITALS: BP 113/74
[2019-12-11 04:00] VITALS: BP 116/77
[2019-12-11 06:01] LABS: BASOPHILS 0.5 % (0-2); EOSINOPHILS 4.1 % (0-7); HEMATOCRIT 41.9 % (36.0-48.0); HEMOGLOBIN 13.3 g/dL (12-16); IMMATURE GRANULOCYTES 4.9 % (0-5); LYMPHOCYTES 16.7 % (15-50); MCH 25.5 pg (26.0-34.0); MCHC 31.7 g/dL (31.0-37.0); MCV 80.4 fL (80.0-100.0); MEAN PLATELET VOLUME 9.9 fL (7.4-10.4); MONOCYTES 7.6 % (2-11); NEUTROPHILS 66.2 % (40-80); PLATELET COUNT 354 10x3/uL (130-400); RBC 5.21 10x6/uL (4.00-5.40); RDW 18.1 % (11.5-14.5); WBC 7.6 10x3/uL (4.8-10.8)
[2019-12-11 06:21] LABS: INR 1.08 (0.85-1.17)
[2019-12-11 06:41] LABS: ANION GAP 9.7 mmol/L (8-16); CALCIUM 9.2 mg/dL (8.5-10.1); CARBON DIOXIDE 33.7 mmol/L (21.0-32.0); CREATININE - SERUM 1.2 mg/dL (0.6-1.3); MAGNESIUM - SERUM 1.9 mg/dL (1.8-2.4); POTASSIUM - SERUM 3.4 mmol/L (3.5-5.1)
--- NOTE | 2019-12-11 09:09 | NUR ---
ASSESSMENT DONE. DENIES NEEDS
[2019-12-11 10:26] VITALS: BP 141/92
--- NOTE | 2019-12-11 10:26 | NUR ---
Rehab Prescreening Consult recieved and the chart has been reviewed. She is [place] Medicaid which will not pay for inpatient rehab at [facility]. Thank You for the referral. Sofía Vicente RN Clinical liaison, Rehab
--- NOTE | 2019-12-11 10:47 | NUR ---
I have reviewed this patient and I concur with the Shift Assessment completed by the Licensed Practical Nurse today this shift.
[2019-12-11] MEDS ORDERED: LOVENOX INJ100 MG/ML SC (11:40)
[2019-12-11] MEDS ORDERED: COUMADIN4 MG PO (11:41)
[2019-12-11] MEDS ORDERED: TESSALON PERLE100 MG PO (11:41)
[2019-12-11] MEDS ORDERED: BUMEX2 MG PO (11:42)
[2019-12-11] MEDS ORDERED: ASPIRIN325 MG PT (11:42)
[2019-12-11] MEDS ORDERED: PROTONIX40 MG PO (11:43)
--- NOTE | 2019-12-11 12:02 | MORECARE ---
CASE MANAGEMENT DISCHARGE SUMMARY PATIENT: DERICK QUILES UNIT: [id number] ADM DATE: 12/01/19 AGE: 44 : 77 SEX: F ROOM/BED: D.1850 AUTHOR: WILLIE GUILLEN PHYSICIAN: REFERRING PHYSICIAN: JUAN PRATER MD DATE OF SERVICE: 12/11/19 Discharge Plan Patient Name: DERICK QUILES Facility: [facility]:[place] : 1975 Planned Disposition: Home with Home Health Anticipated Discharge Date: Discharge Date: Expected LOS: Initial Reviewer: [id number] Initial Review Date: 12/04/2019 Generated: 12/11/19 1:02 pm Comments DCP- Discharge Planning Updated by [email or web address]: Yany Bush on 12/10/19 10:[address] Patient Name: DERICK QUILES Admission Status: ER Accout number: [id number] Admission Date: 12-01-2019 : 1975 Admission Diagnosis: Attending: JUAN PRATRE Current LOS: 9 Anticipated DC Date: Planned Disposition: Home Hlth Svc w Plan Readm Primary Insurance: MEDICAID [place] Discharge Planning Comments: I SPOKE TO [facility] FOR NEBULIZER AND POSSIBLE 02 NEEDS FOR PATIENT. I AM FAXING OVER DOCUMENTS, [facility] WILL DELIVER DME TODAY OR TOMORROW, OR WILL DELIVER IF DC'D SOONER. Digital Forensic Analyst: Yany Bush DCP- Discharge Planning Updated by [id number]: Yany Bush on 12/09/19 3:[address] Patient Name: DERICK QUILES Admission Status: ER Accout number: [id number] Admission Date: 12-01-2019 : 1975 Admission Diagnosis: Attending: JUAN PRATER Current LOS: 8 Anticipated DC Date: Planned Disposition: Home Hlth Svc w Plan Readm Primary Insurance: MEDICAID [place] Discharge Planning Comments:WHEN PATIENT IS STABLE FOR DISCHARGE WE WILL GET A WALK TEST TO ASSESS O2 NEEDS. ERICKA SIGNED FOR [facility]. CM WILL CONTACT [facility] FOR O2 NEEDS. Digital Forensic Analyst: Yany Bush DCP- Discharge Planning Updated by [email or web address]: Yany Bush on 12/04/19 1:[address] Patient Name: DERICK QUILES Admission Status: ER Accout number: [id number] Admission Date: 12-01-2019 : 1975 Admission Diagnosis: Attending: JUAN PRATER Current LOS: 3 Anticipated DC Date: Planned Disposition: Home Hlth Svc w Plan Readm Primary Insurance: MEDICAID [place] Discharge Planning Comments: CM MET WITH PATIENT AFTER OBTAINING VERBAL CONSENT. ERICKA SIGNED TO RESUME HH WITH [facility] IN [place] [phone]. HAS NEBULIZER AT HOME. IS ON O2 HERE, MAY NEED WALK TEST. CM TO FOLLOW AND ASSIST. Digital Forensic Analyst: Yany Bush DCPIA - Discharge Planning Initial Assessment Updated by [email or web address]: Yany Bush on 12/04/19 2:39 pm * Is the patient Alert and Oriented? Yes * PCP WALKER * Pharmacy [facility] * Preadmission Environment Home with Family * ADLs Independent * Other Equipment NEBULIZER * Community resources currently utilized Home Health * Please name any agencies selected above. [facility] [phone]. * Can the patient safely return to the preadmission environment? Yes * Has this patient been hospitalized within the prior 30 days at any hospital? No Coverage Notice Reviewer: [id number] Susanna Bush Notice Issued Date-Time: 12/04/2019 14:41 Notice Type: Patient Choice Letter Notice Delivered To: Patient Relationship to Patient: Tube Repairer Name: Delivery Method: HAND - Hand Delivered Janneth Days: Prior Verbal Notification: Recipient Understood Notice: Yes Recipient Signature: Yes Med Rec Note Co-signed by Attending: Coverage Notice Comment: ERICKA ANY DME, [facility]. Last DP export: 12/10/19 3:43 p Patient Name: DERICK QUILES Page 19623 at 1202 All edits/amendments must be made on the electronic document DICTATION DATE: 12/11/19 1202 GRAVEL TRUCK DRIVER: DANG 12/11/19 1202 RPT#: [id number] DC DATE: STATUS: ADM IN [facility] [address] [place] [address] END OF REPORT
--- NOTE | 2019-12-11 12:25 | NUR ---
UPON ADMIT, PATIENT WAS INTUBATED AND UNABLE TO ASK ABOUT FLU SHOT. I QUESTIONED HER FOR DISCHARGE AND SHE STATES, "I ODN'T TAKE THEM". WHEN ASKED IF SHE SMOKED, SHE SAID THAT SHE QUIT UPON ADMIT AND WILL NOT SMOKE UPON DISCHARGE.
[2019-12-11 14:55] VITALS: BP 111/80
--- NOTE | 2019-12-11 15:32 | MORECARE ---
CASE MANAGEMENT DISCHARGE SUMMARY PATIENT: DERICK QUILES UNIT: [id number] ADM DATE: 12/01/19 AGE: 44 : 77 SEX: F ROOM/BED: D.4490 AUTHOR: MINDYDOC PHYSICIAN: REFERRING PHYSICIAN: JUAN PRATER MD DATE OF SERVICE: 12/11/19 Discharge Plan Patient Name: DERICK QUILES Facility: [facility]:[place] : 1975 Planned Disposition: Home with Home Health Anticipated Discharge Date: 12/11/19 Discharge Date: Expected LOS: 10 Initial Reviewer: [email or web address] Initial Review Date: 12/04/2019 Generated: 12/11/19 4:32 pm Comments DCP- Discharge Planning Updated by [id number]: Steven Tatum on 12/11/19 11:[address] Patient Name: DERICK QUILES Encounter No: [id number] : 1975 Primary Insurance: [place]ID [place] Anticipated DC Date: Planned Disposition: Home with Home Health External Planned Provider: [facility] [place] [phone] DCP follow-up note: CM SPOKE TO [place] OF [facility], THEY ARE DELIVERING NEBULIZER TO PT'S ROOM FOR DISCHARGE HOME TODAY. IF PT NEEDS OXYGEN, SHE WILL REQUIRE "ABG" TO QUALIFY FOR HOME AND OR PORTABLE OXYGEN. PT PLANS TO DISCHARGE HOME WITH HOME HEALTH RESUMPTION. CARE TEAM NOTIFIED OF PLAN DURING MULTIDISCIPLINARY TEAM MEETING. FOR DISCHARGE, PT WILL NEED ABG PRIOR TO DISCHARGE TO ARRANGE OXYGEN IF NEEDED. CM TO CONTACT [facility] [place] FOR HOME HEALTH RESUMPTION AT [phone]. LESTER Duarte MANAGEMENT DCP- Discharge Planning Updated by [id number]: Yany Bush on 12/10/19 10:[address] Patient Name: DERICK QUILES Admission Status: ER Accout number: [id number] Admission Date: 12-01-2019 : 1975 Admission Diagnosis: Attending: JUAN PRATER Current LOS: 9 Anticipated DC Date: Planned Disposition: Home Hlth Svc w Plan Readm Primary Insurance: [place]ID [place] Discharge Planning Comments: I SPOKE TO [facility] FOR NEBULIZER AND POSSIBLE 02 NEEDS FOR PATIENT. I AM FAXING OVER DOCUMENTS, [facility] WILL DELIVER DME TODAY OR TOMORROW, OR WILL DELIVER IF DC'D SOONER. Director Of Sales And Marketing: Yany Bush DCP- Discharge Planning Updated by [id number]: Yany Bush on 12/09/19 3:[address] Patient Name: DERICK QUILES Admission Status: ER Accout number: [id number] Admission Date: 12-01-2019 : 1975 Admission Diagnosis: Attending: JUAN PRATER Current LOS: 8 Anticipated DC Date: Planned Disposition: Home Hlth Svc w Plan Readm Primary Insurance: [place] Discharge Planning Comments:WHEN PATIENT IS STABLE FOR DISCHARGE WE WILL GET A WALK TEST TO ASSESS O2 NEEDS. ERICKA SIGNED FOR [facility]. CM WILL CONTACT [facility] FOR O2 NEEDS. Director Of Sales And Marketing: Yany Bush DCP- Discharge Planning Updated by [email or web address]: Yany Bush on 12/04/19 1:[address] Patient Name: DERICK QUILES Admission Status: ER Accout number: [id number] Admission Date: 12-01-2019 : 1975 Admission Diagnosis: Attending: JUAN PRATER Current LOS: 3 Anticipated DC Date: Planned Disposition: Home Hlth Svc w Plan Readm Primary Insurance: [place]ID [place] Discharge Planning Comments: CM MET WITH PATIENT AFTER OBTAINING VERBAL CONSENT. ERICKA SIGNED TO RESUME HH WITH [facility] [place] [phone]. HAS NEBULIZER AT HOME. IS ON O2 HERE, MAY NEED WALK TEST. CM TO FOLLOW AND ASSIST. Director Of Sales And Marketing: Yany Bush [facility] - Discharge Planning Initial Assessment Updated by [id number]: Yany Bush on 12/04/19 2:39 pm * Is the patient Alert and Oriented? Yes * PCP WALKER * Pharmacy [facility] * Preadmission Environment Home with Family * ADLs Independent * Other Equipment NEBULIZER * Community resources currently utilized Home Health * Please name any agencies selected above. [facility] [phone]. * Can the patient safely return to the preadmission environment? Yes * Has this patient been hospitalized within the prior 30 days at any hospital? No Coverage Notice Reviewer: [id number] Susanna Bush Notice Issued Date-Time: 12/04/2019 14:41 Notice Type: Patient Choice Letter Notice Delivered To: Patient Relationship to Patient: Museum Service Scheduler Name: Delivery Method: HAND - Hand Delivered Janneth Days: Prior Verbal Notification: Recipient Understood Notice: Yes Recipient Signature: Yes Med Rec Note Co-signed by Attending: Coverage Notice Comment: ERICKA ANY DME, [facility]. Last DP export: 12/11/19 11:02 a Patient Name: DERICK QUILES Page 70964 at 1532 All edits/amendments must be made on the electronic document DICTATION DATE: 12/11/19 153 MACHINE DEBURRER: DANG 12/11/19 1532 RPT#: [id number] DC DATE: STATUS: ADM IN [facility] [address] [place] [address] END OF REPORT
--- NOTE | 2019-12-11 15:41 | MORECARE ---
CASE MANAGEMENT DISCHARGE SUMMARY PATIENT: DERICK QUILES UNIT: [id number] ADM DATE: 12/01/19 AGE: 44 : 77 SEX: F ROOM/BED: D.2446 AUTHOR: MINDYDOC PHYSICIAN: REFERRING PHYSICIAN: JUAN PRATER MD DATE OF SERVICE: 12/11/19 Discharge Plan Patient Name: DERICK QUILES Facility: [facility]:[place] : 1975 Planned Disposition: Home with Home Health Anticipated Discharge Date: 12/11/19 Discharge Date: Expected LOS: 10 Initial Reviewer: [id number] Initial Review Date: 12/04/2019 Generated: 12/11/19 4:40 pm Comments DCP- Discharge Planning Updated by [email or web address]: Steven Tatum on 12/11/19 11:[address] Patient Name: DERICK QUILES Encounter No: [id number] : 1975 Primary Insurance: [place]ID [place] Anticipated DC Date: Planned Disposition: Home with Home Health External Planned Provider: [facility] [place] [phone] DCP follow-up note: CM SPOKE TO [place] [facility], THEY ARE DELIVERING NEBULIZER TO PT'S ROOM FOR DISCHARGE HOME TODAY. IF PT NEEDS OXYGEN, SHE WILL REQUIRE "ABG" TO QUALIFY FOR HOME AND OR PORTABLE OXYGEN. PT PLANS TO DISCHARGE HOME WITH HOME HEALTH RESUMPTION. CARE TEAM NOTIFIED OF PLAN DURING MULTIDISCIPLINARY TEAM MEETING. FOR DISCHARGE, PT WILL NEED ABG PRIOR TO DISCHARGE TO ARRANGE OXYGEN IF NEEDED. CM TO CONTACT [facility] [place] FOR HOME HEALTH RESUMPTION AT [phone]. LESTER Duarte MANAGEMENT DCP- Discharge Planning Updated by [id number]: Yany Bush on 12/10/19 10:[address] Patient Name: DERICK QUILES Admission Status: ER Accout number: [id number] Admission Date: 12-01-2019 : 1975 Admission Diagnosis: Attending: JUAN PRATER Current LOS: 9 Anticipated DC Date: Planned Disposition: Home Hlth Svc w Plan Readm Primary Insurance: [place]ID [place] Discharge Planning Comments: I SPOKE TO [facility] FOR NEBULIZER AND POSSIBLE 02 NEEDS FOR PATIENT. I AM FAXING OVER DOCUMENTS, [facility] WILL DELIVER DME TODAY OR TOMORROW, OR WILL DELIVER IF DC'D SOONER. Tobacco Sorter: Yany Bush DCP- Discharge Planning Updated by [id number]: Yany Bush on 12/09/19 3:[address] Patient Name: DERICK QUILES Admission Status: ER Accout number: [id number] Admission Date: 12-01-2019 : 1975 Admission Diagnosis: Attending: JUAN PRATER Current LOS: 8 Anticipated DC Date: Planned Disposition: Home Hlth Svc w Plan Readm Primary Insurance: [place] Discharge Planning Comments:WHEN PATIENT IS STABLE FOR DISCHARGE WE WILL GET A WALK TEST TO ASSESS O2 NEEDS. ERICKA SIGNED FOR [facility]. CM WILL CONTACT [facility] FOR O2 NEEDS. Tobacco Sorter: Yany Bush DCP- Discharge Planning Updated by [id number]: Yany Bush on 12/04/19 1:[address] Patient Name: DERICK QUILES Admission Status: ER Accout number: [id number] Admission Date: 12-01-2019 : 1975 Admission Diagnosis: Attending: JUAN PRATER Current LOS: 3 Anticipated DC Date: Planned Disposition: Home Hlth Svc w Plan Readm Primary Insurance: [place] Discharge Planning Comments: CM MET WITH PATIENT AFTER OBTAINING VERBAL CONSENT. ERICKA SIGNED TO RESUME HH WITH [facility] [place] [phone]. HAS NEBULIZER AT HOME. IS ON O2 HERE, MAY NEED WALK TEST. CM TO FOLLOW AND ASSIST. Tobacco Sorter: Yany Bush [facility] - Discharge Planning Initial Assessment Updated by [id number]: Yany Bush on 12/04/19 2:39 pm * Is the patient Alert and Oriented? Yes * PCP WALKER * Pharmacy [facility] * Preadmission Environment Home with Family * ADLs Independent * Other Equipment NEBULIZER * Community resources currently utilized Home Health * Please name any agencies selected above. [facility] [phone]. * Can the patient safely return to the preadmission environment? Yes * Has this patient been hospitalized within the prior 30 days at any hospital? No External Providers External Provider: [facility] Next Contact Date: 12/11/2019 Service Request Date: Service Type: Resolution: Reviewer: Comments: Coverage Notice Reviewer: [id number] - Yany Bush Notice Issued Date-Time: 12/04/2019 14:41 Notice Type: Patient Choice Letter Notice Delivered To: Patient Relationship to Patient: Shaker Washer Name: Delivery Method: HAND - Hand Delivered Janneth Days: Prior Verbal Notification: Recipient Understood Notice: Yes Recipient Signature: Yes Med Rec Note Co-signed by Attending: Coverage Notice Comment: ERICKA ANY DME, [facility]. Last DP export: 12/11/19 2:32 p Patient Name: DERICK QUILES Page 51802 at 1541 All edits/amendments must be made on the electronic document DICTATION DATE: 12/11/19 154 ASSISTANT PRESS OPERATOR: DANG 12/11/19 1540 RPT#: [id number] DC DATE: STATUS: ADM IN [facility] [address] [place] [address] END OF REPORT
[2019-12-11] MEDS ORDERED: IPRAT-ALBUT 0.5-3 ML UPD (15:50)
--- NOTE | 2019-12-11 16:09 | NUR ---
DC GIVEN TO PT
--- NOTE | 2019-12-11 16:10 | MORECARE ---
CASE MANAGEMENT DISCHARGE SUMMARY PATIENT: DERICK QUILES UNIT: [id number] ADM DATE: 12/01/19 AGE: 44 : 77 SEX: F ROOM/BED: D.2323 AUTHOR: MINDY,DOC PHYSICIAN: REFERRING PHYSICIAN: JUAN PRATER MD DATE OF SERVICE: 12/11/19 Discharge Plan Patient Name: DERICK QUILES Facility: [facility]:[place] : 1975 Planned Disposition: Home with Home Health Anticipated Discharge Date: 12/11/19 Discharge Date: Expected LOS: 10 Initial Reviewer: [id number] Initial Review Date: 12/04/2019 Generated: 12/11/19 5:09 pm Comments DCP- Discharge Planning Updated by [id number]: Steven Tatum on 12/11/19 3:[address] Patient Name: DERICK QUILES Encounter No: [id number] : 1975 Primary Insurance: [place]ID [place] Anticipated DC Date: 12-11-2019 Planned Disposition: Home with Home Health External Planned Provider: [facility] DCP follow-up note: CM RECEIVED DISCHARGE AND HOME HEALTH ORDER. CM MET WITH PT IN ROOM TO DISCUSS DISCHARGE NEEDS AND PLANNING. CM DISCUSSED AVAILABILITY OF HOME HEALTH, REHAB SERVICES AND MEDICAL EQUIPMENT. PT REPORTS HAVING HOME HEALTH WITH [facility]; CM EXPLAINED THAT CM DID NOT THINK THIS WAS A HOME HEALTH SERVICE, PT STATES IF THEY ARE NOT, SHE HAS NO PREFERENCE ON HOME HEALTH PROVIDER. PT HAS NO CHOICE FOR OXYGEN PROVIDER IF SHE NEEDS OXYGEN. CM COMPLETED CHOICE FORM. PT REPORTS HAVING NO RIDE HOME UNTIL WEDNESDAY. CM EXPLAINED THAT CM WILL CHECK TO SEE IF PT IS ELIGIBLE FOR MEDICAID TRANSPORT. PT STATES THAT IS FINE BUT SHE HAS NO CLOTHES TO WEAR HOME. CM EXPLAINED THAT WE CAN GET SCRUBS FOR PT TO GO HOME IN TODAY, SHE WEARS 3X. CM CALLED CHAD WITH [facility] WHO WILL PROVIDE SCRUBS FOR DISCHARGE HOME TODAY. CM CALLED MEDICAID TRANSPORT, , SPOKE TO ESTHELA AND ARRANGED CARD CHECKER FOR TODAY SOON POSSIBLE CM SPOKE TO STAR AT [facility], NEBULIZER ON THE WAY NOW TO PT'S ROOM FOR DISCHARGE HOME. CM RECEIVED ABG, PT DID NOT QUALIFY FOR OXYGEN, NOTIFIED STAR OF [facility] WHO ASKED FOR WALK TEST STATING THEY MAY BE ABLE TO QUALIFY PT THAT WAY. WALK TEST INDICATED LOWEST SAT OF 93% ON EXERTION, PT DID NOT QUALIFY, STAR FROM [facility] ADVISED. STAKING ENGINEER NURSE NOTIFIED. CM RECEIVED CALL FROM BARBARA OF [facility]ICE, , WHO REPORTS THAT THEY CAN DO INR AT THE DOCTORS OFFICE AND ARE OPEN 7 DAYS PER WEEK IF PT WOULD RATHER SEE THE DOCTOR; CM SPOKE TO PT WHO DID NOT WANT TO DRIVE. CM NOTIFED BARBARA WHO INFORMED CM THAT DR. CHAPARRO WILL FOLLOW HOME HEALTH ORDERS. CM CALLED [facility] [place] [facility], , SPOKE TO KIERSTEN WHO ACCEPTED REFERRAL FOR HOME HEALTH. CM FAXED REFERRAL AND DISCHARGE INFORMATION TO [facility] AT [phone]. PT AND STAKING ENGINEER NURSE NOTIFIED. MEDICAID TRANSPORT TO CALL MED 2 NURSES STATION WHEN OUT FRONT TO CARD CHECKER PT TODAY. Steven Tatum, CASE MANAGEMENT DCP- Discharge Planning Updated by [email or web address]: Steven Tatum on 12/11/19 11:[address] Patient Name: DERICK QUILES Encounter No: [id number] : 1975 Primary Insurance: [place]ID [place] Anticipated DC Date: Planned Disposition: Home with Home Health External Planned Provider: [facility] [place] [phone] DC follow-up note: CM SPOKE TO [facility], THEY ARE DELIVERING NEBULIZER TO PT'S ROOM FOR DISCHARGE HOME TODAY. IF PT NEEDS OXYGEN, SHE WILL REQUIRE "ABG" TO QUALIFY FOR HOME AND OR PORTABLE OXYGEN. PT PLANS TO DISCHARGE HOME WITH HOME HEALTH RESUMPTION. CARE TEAM NOTIFIED OF PLAN DURING MULTIDISCIPLINARY TEAM MEETING. FOR DISCHARGE, PT WILL NEED ABG PRIOR TO DISCHARGE TO ARRANGE OXYGEN IF NEEDED. CM TO CONTACT [facility] [place] FOR HOME HEALTH RESUMPTION AT [phone]. Steven Tatum, CASE MANAGEMENT DCP- Discharge Planning Updated by [id number]: Yany Bush on 12/10/19 10:[address] Patient Name: DERICK QUILES Admission Status: ER Accout number: [id number] Admission Date: 12-01-2019 : 1975 Admission Diagnosis: Attending: JUAN PRATER Current LOS: 9 Anticipated DC Date: Planned Disposition: Home Hlth Svc w Plan Readm Primary Insurance: [place] Discharge Planning Comments: I SPOKE TO [facility] FOR NEBULIZER AND POSSIBLE 02 NEEDS FOR PATIENT. I AM FAXING OVER DOCUMENTS, [facility] WILL DELIVER DME TODAY OR TOMORROW, OR WILL DELIVER IF DC'D SOONER. Outdoor Studies Director: Yany Bush DCP- Discharge Planning Updated by [id number]: Yany Bush on 12/09/19 3:[address] Patient Name: DERICK QUILES Admission Status: ER Accout number: [id number] Admission Date: 12-01-2019 : 1975 Admission Diagnosis: Attending: JUAN PRATER Current LOS: 8 Anticipated DC Date: Planned Disposition: Home Hlth Svc w Plan Readm Primary Insurance: [place] Discharge Planning Comments:WHEN PATIENT IS STABLE FOR DISCHARGE WE WILL GET A WALK TEST TO ASSESS O2 NEEDS. ERICKA SIGNED FOR [facility]. CM WILL CONTACT [facility] FOR O2 NEEDS. Outdoor Studies Director: Yany Bush DCP- Discharge Planning Updated by [id number]: Yany Bush on 12/04/19 1:[address] Patient Name: DERICK QUILES Admission Status: ER Accout number: [id number] Admission Date: 12-01-2019 : 1975 Admission Diagnosis: Attending: JUAN PRATER Current LOS: 3 Anticipated DC Date: Planned Disposition: Home Hlth Svc w Plan Readm Primary Insurance: [place] Discharge Planning Comments: CM MET WITH PATIENT AFTER OBTAINING VERBAL CONSENT. ERICKA SIGNED TO RESUME WITH [facility] [place] [phone]. HAS NEBULIZER AT HOME. IS ON O2 HERE, MAY NEED WALK TEST. CM TO FOLLOW AND ASSIST. Outdoor Studies Director: Yany Bush [facility] - Discharge Planning Initial Assessment Updated by [id number]: Yany Bush on 12/04/19 2:39 pm * Is the patient Alert and Oriented? Yes * PCP WALKER * Pharmacy [facility] * Preadmission Environment Home with Family * ADLs Independent * Other Equipment NEBULIZER * Community resources currently utilized Home Health * Please name any agencies selected above. [facility] [phone]. * Can the patient safely return to the preadmission environment? Yes * Has this patient been hospitalized within the prior 30 days at any hospital? No Coverage Notice Reviewer: [id number] - Yany Bush Notice Issued Date-Time: 12/04/2019 14:41 Notice Type: Patient Choice Letter Notice Delivered To: Patient Relationship to Patient: Head Transfer Clerk Name: Delivery Method: HAND - Hand Delivered Janneth Days: Prior Verbal Notification: Recipient Understood Notice: Yes Recipient Signature: Yes Med Rec Note Co-signed by Attending: Coverage Notice Comment: ERICKA ANY DME, [facility]. Reviewer: [id number] - Steven Tatum Notice Issued Date-Time: 12/11/2019 13:20 Notice Type: Patient Choice Letter Notice Delivered To: Patient Relationship to Patient: Head Transfer Clerk Name: Delivery Method: HAND - Hand Delivered Janneth Days: Prior Verbal Notification: Recipient Understood Notice: Yes Recipient Signature: Yes Med Rec Note Co-signed by Attending: Coverage Notice Comment: [facility] OR NO HOME HEALTH PROVIDER PREFERENCE NO OXYGEN PROVIDER PREFERENCE Last DP export: 12/11/19 2:41 p Patient Name: DERICK QUILES Page 63916 at 1610 All edits/amendments must be made on the electronic document DICTATION DATE: 12/11/19 1609 POTASH FLAKER: DM 12/11/19 1609 RPT#: [id number] DC DATE: STATUS: ADM IN [facility] [address] [place] [address] END OF REPORT
--- NOTE | 2019-12-11 18:16 | NUR ---
WITHOUT CHANGES OR DISTRESS NOTED AT THIS TIME. DENIES NEEDS. WAITING ON SCAT VAN
--- NOTE | 2019-12-11 19:50 | NUR ---
DISCHARGED TO HOME. LEFT ON SCAT BUS. ALERT AND ORIENTED UP AD CHAN . TRANSFERED SELF. HAS PROSTHETIC LEG ON AND TOOK ALL PERSONAL BELONGINGS. IV, TELEMETRY REMOVED ON DAYSHI.
== END 2019-12-11 19:53 | disposition home health service (06) | DRG 208 ==
LOC: D.ER 13:24 → D.ICU 14:00 → D.M2 14:00 → D.ER 14:49 → D.M2 12-06 15:10
PROVIDERS: Family Medicine; ADMIT Internal Medicine Nephrology; ATTEND Internal Medicine Nephrology
PROC: 5A1945Z Respiratory Ventilation, 24-96 Consecutive Hours (ICD-10-PCS; principal; 2019-12-01)
DX: J96.01 Acute respiratory failure with hypoxia (principal); I50.23 Acute on chronic systolic (congestive) heart failure; I21.4 Non-ST elevation (NSTEMI) myocardial infarction; J44.1 Chronic obstructive pulmonary disease with (acute) exacerbation; I13.0 Hypertensive heart and chronic kidney disease with heart failure and stage 1 through stage 4 chronic kidney disease, or unspecified chronic kidney disease; E87.2 Acidosis; I42.9 Cardiomyopathy, unspecified; N39.0 Urinary tract infection, site not specified; J98.11 Atelectasis; N17.9 Acute kidney failure, unspecified; G93.49 Other encephalopathy; N18.3 Chronic kidney disease, stage 3 (moderate); E11.22 Type 2 diabetes mellitus with diabetic chronic kidney disease; I25.10 Atherosclerotic heart disease of native coronary artery without angina pectoris; E66.01 Morbid (severe) obesity due to excess calories; D72.829 Elevated white blood cell count, unspecified; Z91.19 Patient's noncompliance with other medical treatment and regimen; Z79.01 Long term (current) use of anticoagulants; Z89.512 Acquired absence of left leg below knee; D50.9 Iron deficiency anemia, unspecified